=== PATIENT | female | born 1985 | race African-American/Black ===

== ENCOUNTER 2017-08-22 13:44 | Observation (INO) | payer BC, MEDICAID, OTHER ==
[~2017-08-22 13:44] MED LIST: LORazepam INJ* 2 MG/ML 1 ML VIAL IV PUSH ONE
[2017-08-22] MEDS ORDERED: Aspirin Low Dose CHEW TAB* 81 MG PO ONE (15:08)
[2017-08-22] MEDS ORDERED: Nitroglycerin TAB 0.4 MG* 0.4 MG TAB ONE (15:08)
[2017-08-22] MEDS ORDERED: Nitroglycerin TAB 0.4 MG* 0.4 MG TAB SL PRN (15:08)
[2017-08-22] MEDS ORDERED: Aspirin Low Dose CHEW TAB* 81 MG ONE (15:08)
[2017-08-22] MEDS ORDERED: Labetalol IV* 5 MG/ML 20 ML VIAL IV PUSH ONE (15:09)
[2017-08-22 15:45] LABS: Hematocrit 41 % (35-47); Mean Corpuscular HGB Conc 34 g/dl (31-36); Mean Corpuscular Hemoglobin 33 pg (27-31); Mean Corpuscular Volume 99 fL (80-97); Mean Platelet Volume 7 um3 (7.4-10.4); Red Blood Count 4.18 10^6/ul (4.0-5.4); Red Cell Distribution Width 14 % (10.5-15); White Blood Count 7.7 10^3/ul (3.5-10.8)
--- NOTE | 2017-08-22 15:47 | RAD ---
HISTORY: Chest pain COMPARISONS: December 08, 2013 VIEWS: 1: frontal portable view of the chest at 3:36 PM FINDINGS: LINES AND TUBES: None. CARDIOMEDIASTINAL SILHOUETTE: The cardiomediastinal silhouette is normal for portable technique. PLEURA: The costophrenic angles are sharp. No pleural abnormalities are noted. LUNG PARENCHYMA: The lungs are clear. ABDOMEN: The upper abdomen is clear. There is no subphrenic gas. BONES AND SOFT TISSUES: No bone or soft tissue abnormalities are noted. IMPRESSION: NO ACTIVE CARDIOPULMONARY DISEASE.
[2017-08-22] MEDS ORDERED: LORazepam INJ* 2 MG/ML 1 ML VIAL IV PUSH ONE ×2 (15:52→18:15)
[2017-08-22 16:26] LABS: ALT 15 U/L (7-52); AST 17 U/L (13-39); Albumin 5.1 g/dL (3.2-5.2); Alkaline Phosphatase 81 U/L (34-104); Anion Gap 9 mmol/L (2-11); BUN/Creatinine Ratio 10.1 (8-20); Blood Urea Nitrogen 8 mg/dL (6-24); CO2 Carbon Dioxide 24 mmol/L (22-32); Calcium 10.4 mg/dL (8.6-10.3); Chloride 102 mmol/L (101-111); Creatine Kinase 50 U/L (10-223); EGFR African American 107.1 (>60); EGFR Non-African American 83.3 (>60); Globulin 3.8 g/dL (2-4); Glucose 104 mg/dL (70-100); Magnesium 2.1 mg/dL (1.9-2.7); Potassium 3.6 mmol/L (3.5-5.0); Sodium 135 mmol/L (133-145); Total Protein 8.9 g/dL (6.4-8.9)
[2017-08-22 17:28] LABS: Urine Bacteria Absent (Absent); Urine Bilirubin Negative (Negative); Urine Glucose Negative (Negative); Urine Nitrite Negative (Negative)
[2017-08-22] MEDS ORDERED: hydrALAZINE IV* 20 MG/ML VIAL IV SLOW PU ONE (18:16)
[2017-08-22] MEDS ORDERED: amLODIPine TAB* 5 MG PO ONE (18:18)
[2017-08-22] MEDS ORDERED: hydrALAZINE IV* 20 MG/ML VIAL IV SLOW PU PRN (18:25)
[2017-08-22] MEDS ORDERED: Acetaminophen TAB* 325 MG PO PRN (18:26)
[2017-08-22] MEDS ORDERED: Ondansetron INJ* 2 MG/ML VIAL IV PRN (18:26)
--- NOTE | 2017-08-22 18:39 | ED ---
Jamilah Bo Thomas, scribed for Peter Christiansen MD on 08/22/17 at 1514 . Hypertension - HPI Summary HPI Summary: The pt is a 32 y/o F presenting to the ED c/o elevated blood pressure in the 170s/120s. The patient began to develop blurry vision when she was at work and she asked her co-worker to measure her blood pressure, revealing the elevated blood pressure. She has a Hx of HTN sometimes and has previously been treated with medication. However, this medication gave her dizziness and she stopped taking the medication some time ago. She also c/o CP described as tightness that began since she arrived to [facility]. Pt additionally c/o blurry vision, a slight HODGE, dizziness, and near-syncope (none in the ED but prior to arrival). Pt denies N/V. PMHx negative for CAD and HLD. She is a non-smoker, occasionally uses alcohol, and no drug use. PSHx of an ectopic 11 years ago. She is accompanied by a male. - History of Current Complaint Chief Complaint: EDHypertension Stated Complaint: HIGH BP Time Seen by Provider: 08/22/17 14:56 Hx Obtained From: Patient Hx Last Menstrual Period: a while ago - on control Onset/Duration: Started Hours Ago - onset of blurry vision today, Still Present Timing: Constant Reported Blood Pressure Prior To Arrival: 170s/120s Aggravating Factor(s): Nothing Alleviating Factor(s): Nothing Associated Signs & Symptoms: Chest Pain, Vision Changes, Headaches, Dizziness, Other: - Near-syncope (none in the ED but POP SINGER) Related Hx: Diagnosed As: - HTN - Allergies/Home Medications Allergies/Adverse Reactions: Allergies Allergy/AdvReac Type Severity Reaction Status Date / Time Penicillins Allergy Intermediate RASH, Verified 08/22/17 15:06 ITCHY THROAT, DIFFICULTY BREATHING, HIVES all fruit except citrus Allergy Severe Hives/Diff. 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 Denies: Hx Congestive Heart Failure, Hx Deep Vein Thrombosis, Hx Myocardial Infarction, Hx Pacemaker/ICD Respiratory History: Reports: Hx Asthma Denies: Hx Chronic Obstructive Pulmonary Disease (COPD), Hx Lung Cancer, Hx Pneumonia, Hx Pulmonary Embolism GI History: Denies: Hx Gall Bladder Disease, Hx Gastrointestinal Bleed, Hx Jaundice, Hx Ulcer, Hx Urosepsis History: Reports: Hx Kidney Stones - PASSED years ago., Other Problems/ Disorders - kidney stone Denies: Hx Renal Disease Sensory History: Reports: Hx Contacts or Glasses - glasses no contacts Opthamlomology History: Reports: Hx Contacts or Glasses - glasses no contacts Neurological History: Reports: Other Neuro Impairments/Disorders - anxiety Denies: Hx Dementia, Hx Migraine, Hx Seizures, Hx Transient Ischemic Attacks (TIA) Psychiatric History: Reports: Hx Anxiety - NO MED Denies: Hx Depression, Hx Schizophrenia, Hx Bipolar Disorder - Surgical History Surgery Procedure, Year, and Place: ectopic 2003 Hx Anesthesia Reactions: No Infectious Disease History: No Infectious Disease History: Denies: Hx Clostridium Difficile, Hx Hepatitis, Hx Human Immunodeficiency Virus (HIV), Hx of Known/Suspected MRSA, Hx Shingles, Hx Tuberculosis, Hx Known/ Suspected VRE, Hx Known/Suspected VRSA, History Other Infectious Disease, Traveled Outside the [place] in Last 30 Days - Family History Known Family History: Positive: Hypertension, Blood Disorder - sickle cell Negative: Renal Disease - Social History Alcohol Use: Occasionally Hx Substance Use: No Substance Use Type: Reports: None Hx Tobacco Use: No Smoking Status (MU): Never Smoked Tobacco Length of Time of Smoking/Using Tobacco: 5 + cigs Have You Smoked in the Last Year: Yes Review of Systems Negative: Fever Positive: Blurred Vision Positive: Chest Pain, Other - Elevatd BP in the 170s/120s Negative: Vomiting, Nausea Neurological: Other - Dizziness, near-syncope Positive: Headache - minor All Other Systems Reviewed And Are Negative: Yes Physical Exam - Summary Physical Exam Summary: VITAL SIGNS: Reviewed. GENERAL: Patient is a well-developed and nourished female who is lying comfortable in the stretcher. Patient is not in any acute respiratory distress. HEAD AND FACE: No signs of trauma. No ecchymosis, hematomas or skull depressions. No sinus tenderness. EYES: PERRLA, EOMI x 2, No injected conjunctiva, no nystagmus. Fundoscopic exam is negative. EARS: Hearing grossly intact. Ear canals and tympanic membranes are within normal limits. MOUTH: Oropharynx within normal limits. NECK: Supple, trachea is midline, no adenopathy, no JVD, no carotid bruit, no c- spine tenderness, neck with full ROM. CHEST: Symmetric, no tenderness at palpation LUNGS: Clear to auscultation bilaterally. No wheezing or crackles. CVS: Regular rate and rhythm, S1 and S2 present, no murmurs or gallops appreciated. ABDOMEN: Soft, non-tender. No signs of distention. No rebound no guarding, and no masses palpated. Bowel sounds are normal. EXTREMITIES: FROM in all major joints, no edema, no cyanosis or clubbing. NEURO: Alert and oriented x 3. No acute neurological deficits. Speech is normal and follows commands. SKIN: Dry and warm Triage Information Reviewed: Yes Vital Signs On Initial Exam: Initial Vitals Temp Pulse Resp BP Pulse Ox 99 F 94 16 171/107 95 08/22/17 13:46 08/22/17 13:46 08/22/17 13:46 08/22/17 13:46 08/22/17 13:46 Vital Signs Reviewed: Yes Diagnostics - Vital Signs Vital Signs Temp Pulse Resp BP Pulse Ox 08/22/17 13:46 99 F 94 16 171/107 95 - Laboratory Lab Results: Lab Results 08/22/17 08/22/17 08/22/17 Range/Units 15:28 15:28 15:28 WBC 7.7 (3.5-10.8) 10^3/ul RBC 4.18 (4.0-5.4) 10^6/ul Hgb 14.0 (12.0-16.0) g/dl Hct 41 (35-47) % MCV 99 H (80-97) fL MCH 33 H (27-31) pg MCHC 34 (31-36) g/dl RDW 14 (10.5-15) % Plt Count 357 (150-450) 10^3/ul MPV 7 L (7.4-10.4) um3 Neut % (Auto) 60.6 (38-83) % Lymph % (Auto) 17.7 L (25-47) % Gregory % (Auto) 6.8 (1-9) % Eos % (Auto) 14.3 H (0-6) % Baso % (Auto) 0.6 (0-2) % Absolute Neuts (auto) 4.7 (1.5-7.7) 10^3/ul Absolute Lymphs (auto) 1.4 (1.0-4.8) 10^3/ul Absolute Monos (auto) 0.5 (0-0.8) 10^3/ul Absolute Eos (auto) 1.1 H (0-0.6) 10^3/ul Absolute Basos (auto) 0 (0-0.2) 10^3/ul Absolute Nucleated RBC 0 10^3/ul Nucleated RBC % 0 Sodium 135 (133-145) mmol/L Potassium 3.6 (3.5-5.0) mmol/L Chloride 102 (101-111) mmol/L Carbon Dioxide 24 (22-32) mmol/L Anion Gap 9 (2-11) mmol/L BUN 8 (6-24) mg/dL Creatinine 0.79 (0.51-0.95) mg/dL Est GFR ( Amer) 107.1 (>60) Est GFR (Non-Af Amer) 83.3 (>60) BUN/Creatinine Ratio 10.1 (8-20) Glucose 104 H (70-100) mg/dL Calcium 10.4 H (8.6-10.3) mg/dL Magnesium 2.1 (1.9-2.7) mg/dL Total Bilirubin 0.60 (0.2-1.0) mg/dL AST 17 (13-39) U/L ALT 15 (7-52) U/L Alkaline Phosphatase 81 (34-104) U/L Total Creatine Kinase 50 (10-223) U/L CK-MB (CK-2) 0.7 (0.6-6.3) ng/mL Troponin I 0.00 (<0.04) ng/mL B-Natriuretic Peptide 20 ( - 100) pg/mL Total Protein 8.9 (6.4-8.9) g/dL Albumin 5.1 (3.2-5.2) g/dL Globulin 3.8 (2-4) g/dL Albumin/Globulin Ratio 1.3 (1-3) TSH 0.60 (0.34-5.60) mcIU/mL Beta HCG, Quant < 0.60 mIU/mL Urine Color Urine Appearance Urine pH (5-9) Ur Specific [place] (1.010-1.030) Urine Protein (Negative) Urine Ketones (Negative) Urine Blood (Negative) Urine Nitrate (Negative) Urine Bilirubin (Negative) Urine Urobilinogen (Negative) Ur Leukocyte Esterase (Negative) Urine WBC (Auto) (Absent) Urine RBC (Auto) (Absent) Ur Squamous Epith Cells (Absent) Urine Bacteria (Absent) Urine Glucose (Negative) 08/22/17 Range/Units 17:08 WBC (3.5-10.8) 10^3/ul RBC (4.0-5.4) 10^6/ul Hgb (12.0-16.0) g/dl Hct (35-47) % MCV (80-97) fL MCH (27-31) pg MCHC (31-36) g/dl RDW (10.5-15) % Plt Count (150-450) 10^3/ul MPV (7.4-10.4) um3 Neut % (Auto) (38-83) % Lymph % (Auto) (25-47) % Gregory % (Auto) (1-9) % Eos % (Auto) (0-6) % Baso % (Auto) (0-2) % Absolute Neuts (auto) (1.5-7.7) 10^3/ul Absolute Lymphs (auto) (1.0-4.8) 10^3/ul Absolute Monos (auto) (0-0.8) 10^3/ul Absolute Eos (auto) (0-0.6) 10^3/ul Absolute Basos (auto) (0-0.2) 10^3/ul Absolute Nucleated RBC 10^3/ul Nucleated RBC % Sodium (133-145) mmol/L Potassium (3.5-5.0) mmol/L Chloride (101-111) mmol/L Carbon Dioxide (22-32) mmol/L Anion Gap (2-11) mmol/L BUN (6-24) mg/dL Creatinine (0.51-0.95) mg/dL Est GFR ( Amer) (>60) Est GFR (Non-Af Amer) (>60) BUN/Creatinine Ratio (8-20) Glucose (70-100) mg/dL Calcium (8.6-10.3) mg/dL Magnesium (1.9-2.7) mg/dL Total Bilirubin (0.2-1.0) mg/dL AST (13-39) U/L ALT (7-52) U/L Alkaline Phosphatase (34-104) U/L Total Creatine Kinase (10-223) U/L CK-MB (CK-2) (0.6-6.3) ng/mL Troponin I (<0.04) ng/mL B-Natriuretic Peptide ( - 100) pg/mL Total Protein (6.4-8.9) g/dL Albumin (3.2-5.2) g/dL Globulin (2-4) g/dL Albumin/Globulin Ratio (1-3) TSH (0.34-5.60) mcIU/mL Beta HCG, Quant mIU/mL Urine Color Yellow Urine Appearance Clear Urine pH 6.0 (5-9) Ur Specific [place] 1.008 L (1.010-1.030) Urine Protein Negative (Negative) Urine Ketones Negative (Negative) Urine Blood 1+ H (Negative) Urine Nitrate Negative (Negative) Urine Bilirubin Negative (Negative) Urine Urobilinogen Negative (Negative) Ur Leukocyte Esterase Negative (Negative) Urine WBC (Auto) Trace(0-5/hpf) (Absent) Urine RBC (Auto) Trace(0-2/hpf) (Absent) Ur Squamous Epith Cells Present H (Absent) Urine Bacteria Absent (Absent) Urine Glucose Negative (Negative) Result Diagrams: 08/22/17 15:28 08/22/17 15:28 Lab Statement: Any lab studies that have been ordered have been reviewed, and results considered in the medical decision making process. - Radiology CXR Xray Interpretation: No Acute Changes - No active cardiopulmonary disease. ED physician has reviewed this report and agrees. Radiology Interpretation Completed By: Radiologist - EKG 13:58 Cardiac Rate: NL - 90 BPM EKG Interpretation: Sinus rhyhm. No ST elevations. Nml axis. Hypertension Course/Dx - Course Assessment/Plan: The pt is a 32 y/o F presenting to the ED c/o elevated blood pressure in the 170s/120s. The patient began to develop blurry vision when she was at work and she asked her co-worker to measure her blood pressure, revealing the elevated blood pressure. She has a Hx of HTN sometimes and has previously been treated with medication. However, this medication gave her dizziness and she stopped taking the medication some time ago. She also c/o CP described as tightness that began since she arrived to [facility]. Pt additionally c/o blurry vision, a slight HODGE, dizziness, and near-syncope (none in the ED but prior to arrival). Pt denies N/V. PMHx negative for CAD and HLD. She is a non- smoker, occasionally uses alcohol, and no drug use. PSHx of an ectopic 11 years ago. She is accompanied by a male. Test results are without significant abnormality except glucose 104 and calcium 10.4. Troponin is 0.00. UA is negative for UTI. CXR show no acute cardiopulmonary disease. In the ED course the patient was given labetalol for the hypertensive urgency and ASA and NTG for CP. The patient says that the CP has decreased after NTG. Therefore, I discussed the case with Dr. Wilkerson, who accepts the patient for admission to [facility]. The patient is hemodynamically stable and alert and oriented x3. - Diagnoses Differential Diagnosis/HQI PQRI: Hypertension, Hypertensive Crisis, Hypertensive Urgency Provider Diagnoses: Hypertensive urgency, Chest pain rule out ACS - Physician Notifications Discussed Care Of Patient With: Ernesto Becerra Time Discussed With Above Provider: 17:32 Instructed by Provider To: Other - I consulted with Dr. Becerra, hospitalist, who admits the patient to [facility]. Discharge - Discharge Plan Condition: Fair Disposition: ADMITTED TO [facility] documentation as recorded by the Jamilah powell Thomas accurately reflects the service I personally performed and the decisions made by me, Peter Christiansen MD.
[2017-08-22 19:01] LABS: Benzodiazepine Urine Screen None Detected (None Detect)
[2017-08-22] MEDS ORDERED: Enoxaparin(*) 40 MG/0.4 ML SYR SUBCUT SCH (20:00)
--- NOTE | 2017-08-22 22:15 | HP ---
CC: Dr. Castillo* ADMISSION HISTORY AND PHYSICAL: DATE OF ADMISSION: 08/22/2017. PRIMARY CARE PROVIDER: Dr. Castillo. ADMITTING PROVIDER: ALIRIO Deleon SUPERVISING PHYSICIAN: Dr. Ernesto Becerra* (dictated by ALIRIO Deleon). CHIEF COMPLAINT: Headache, chest pain, and anxiety. HISTORY OF PRESENT ILLNESS: This is a 32-year-old female with a known history of hypertension, who presents to the emergency department with complaints of headache, chest pain, and anxiety. She states that she has also had some visual changes including blurred vision and some pain in her eyes that she associates with focusing between objects far and near. She was previously treated for hypertension, but stopped her antihypertensive medication about 4 years ago because she states that it made her feel dizzy. She has not been treated since or had a history of prior hypertensive urgency. She has a family history with her mother and grandmother both being treated for hypertension but states that she has not had a prior workup for secondary causes of hypertension. In the emergency department, the patient was given aspirin, labetalol, and a nitro tab as well as a half a milligram of IV lorazepam. She states that initially she started to feel somewhat better but at the time of evaluation her symptoms have started to return again. The patient denies any recent illness or inciting factor. She states that the anxiety started after she had the headache and chest pain. It sounds like her mother and grandmother had serious medical problems and she is anxious about her current symptoms. The patient denies abdominal pain, nausea, vomiting, or diarrhea. PAST MEDICAL HISTORY: Hypertension. PAST SURGICAL HISTORY: Fallopian ectopic . HOME MEDICATIONS: None. FAMILY HISTORY: Both mother and grandmother were treated for hypertension. Her mother had a history of cardiac arrest and her grandmother had CVA. SOCIAL HISTORY: The patient is an active smoker, at least a 15- to 20-pack- year smoking history. She consumes alcohol on a social basis. She currently lives alone and denies any illicit drug use. REVIEW OF SYSTEMS: As noted above in HPI, all other systems reviewed and considered negative. PHYSICAL EXAMINATION GENERAL: This is a young and otherwise well-appearing but anxious female accompanied by her sister. VITAL SIGNS: Initially, temperature 99 degrees Fahrenheit, pulse 94 beats per minute, respiratory rate 16 per minute, oxygen saturation 95% on room air, blood pressure 171/107 mmHg. HEENT: Head is normocephalic and atraumatic. Mucous membranes are pink and moist. Funduscopic exam was not completed. RESPIRATORY: Lungs are clear to auscultation without wheezes, crackles, or rhonchi. CARDIOVASCULAR: Heart has regular rate and rhythm without murmurs, rubs, or gallops. ABDOMEN: Abdomen is soft. She has some mild tenderness to palpation. EXTREMITIES: No edema noted. PSYCH: The patient is alert and appropriately oriented but seems excessively anxious and has somewhat of a nervous tap. SKIN: No concerning rashes or lesions on limited exam. DIAGNOSTIC STUDIES/LAB DATA: CBC shows a white blood cell count of 7700, hemoglobin of 14.0 g/dL, and a platelet count of 357,000. Comprehensive metabolic panel shows a sodium of 135 mmol/L, potassium of 3.6, serum bicarb 24, creatinine 0.79. Random glucose of 104 mg/dL. Total bilirubin and transaminases within normal limits. Troponin negative at 0.00. BNP normal at 20. Beta hCG is negative. TSH is normal at 0.6. Urinalysis is unremarkable, specifically no proteinuria appreciated. Imaging: EKG shows a normal sinus rhythm. Chest x-ray shows no acute process. ASSESSMENT AND PLAN: This is a 32-year-old female with a known history of hypertension, has been untreated for several years, who presents with complaints of headache and chest pain with blurred vision with noted hypertension. She is being admitted to observation status for hypertensive urgency. 1. Hypertensive urgency - no evidence of end-organ damage. Troponin negative. No EKG changes. The patient responded slightly to the labetalol and nitro in the emergency department. We will start oral amlodipine and give IV hydralazine along with some additional IV lorazepam for her persistent anxiety. Workup for secondary causes of hypertension should be considered in this young and otherwise healthy and fit-appearing female. She does have a family history of hypertension, but otherwise no explanation for such poorly controlled hypertension in a young woman. She is no longer treated with oral contraceptive pills but has in the past. We will order serum catecholamines and recommend a duplex arterial ultrasound of the renal arteries to evaluate for stenosis on an outpatient basis, which can be coordinated through her primary care provider. 2. Anxiety - the patient states that this is not a chronic complaint for her and the anxiety started after her other symptoms, rather than the other way around. 3. Code status. The patient is full code. 4. DVT prophylaxis. The patient is at low risk and will be placed on SCDs. 5. Healthcare proxy is her father. DISPOSITION: The patient is being admitted to observation status with anticipated length of stay to be less than 2 midnights. ALIRIO DELEON [id number]/[facility] #: [id number] MTDTaiwo
[2017-08-22] MEDS ORDERED: Iohexol 350* (CONTRAST) 500 ML MDV IV ONE (22:34)
[2017-08-23] MEDS ORDERED: ALPRAZolam TAB* 0.5 MG PO ONE (07:01)
--- NOTE | 2017-08-23 07:57 | RAD ---
INDICATION: Chest pain in a 32-year-old. Evaluate for aortic dissection. COMPARISON: CTA chest December 08, 2013 TECHNIQUE: Axial source images were obtained from the thoracic inlet to the symphysis pubis following administration of intravenous contrast only and using CT endograft technique. 100 mL of Omnipaque 350 was utilized. Coronal and sagittal reconstructed images were acquired. CHEST FINDINGS: Neck/thyroid: The visualized neck to include the thyroid appear unchanged. There is a left thyroid nodule which is previously undergone fine-needle aspiration. Chest wall: There are no acute abnormalities of the bony thorax or chest wall. There is no supraclavicular, infraclavicular, or axillary lymphadenopathy. Lungs : There are no pulmonary parenchymal masses or infiltrates. The pulmonary interstitium appears normal. There are no endobronchial lesions. Cardiomediastinal structures: The heart is normal in size. There is no pericardial effusion. There is no evidence of thoracic aortic aneurysm or dissection. The pulmonary vessels appear normal. There is no CT evidence of acute pulmonary embolic disease. There is no mediastinal or hilar adenopathy. The esophagus appears normal. Pleura : There are no pleural-based masses or effusions. ABDOMINAL/PELVIC FINDINGS: Liver: The liver is normal in size. There are no masses. There is no ductal dilatation. Gallbladder: There are no calcified gallstones. There is no evidence of wall thickening or pericholecystic fluid. Spleen: The spleen is normal in size. There are no masses. Pancreas: There is no evidence of pancreatic mass or ductal dilatation. Adrenal glands: There is no evidence of adrenal mass. Kidneys: The kidneys are normal in size and position. There are prompt nephrograms and there is prompt excretion bilaterally. There are no renal parenchymal masses. There is no evidence of nephrolithiasis. Adenopathy: There is no evidence of adenopathy by size criteria. Fluid collections: There are no free or localized fluid collections. Vessels: The abdominal aorta is normal in caliber and without evidence of aortic aneurysm or dissection. The visceral branches arise satisfactorily. The iliac vessels appear normal. GI tract: Evaluation of the GI tract is limited without oral contrast. There are no specific CT abnormality in the upper or lower GI tracts. The appendix is normal Pelvic organs: The uterus and right adnexa are unremarkable. There is a 2.5 cm involuting left ovarian cyst Bladder: There are no bladder masses. Abdominal and pelvic soft tissues: The extraperitoneal abdominal and pelvic soft tissues appear normal.. Osseous structures: There are no acute osseous findings. IMPRESSION: NORMAL CT ANGIOGRAPHIC APPEARANCE OF THE THORACIC AND ABDOMINAL AORTA. NO CT EVIDENCE OF ACUTE PULMONARY EMBOLIC DISEASE. STABLE LEFT THYROID NODULE.
[2017-08-23 10:21] LABS: Calcium 9.1 mg/dL (8.6-10.3); EGFR African American 121.2 (>60); EGFR Non-African American 94.2 (>60); Potassium 3.7 mmol/L (3.5-5.0)
[2017-08-23 13:19] VITALS: BP 118/77
--- NOTE | 2017-08-23 17:35 | DS ---
DISCHARGE SUMMARY: DATE OF ADMISSION: 08/22/17 DATE OF DISCHARGE: 08/23/17 ADMITTING PROVIDER: ALIRIO Dasilva. ATTENDING PHYSICIAN: Surya Lynne MD. PRIMARY CARE PROVIDER: Dr. Castillo. CHIEF COMPLAINT: Headache, chest pressure, anxiety. PRIMARY DIAGNOSES: 1. Hypertensive urgency. 2. Anxiety attack. HISTORY OF PRESENT ILLNESS AND HOSPITAL COURSE: aYni Campbell is a 32-year- old female with past medical history of hypertension, off medications for the last several years as she felt dizzy on them, who presented with blurred vision , pain in the eyes associated with difficulty focusing between objects far and near, please see H & P for full details. The patient briefly also felt a sensation of chest pressure/squeezing as if an elevator door was closing on her. She was noted to be hypertensive in the emergency room with systolic blood pressure 175/125. She was given IV hydralazine and oral amlodipine with improvement of pressures by hospital day #2. Her troponins were negative. EKG showed no ischemic changes. She was monitored on telemetry with no evidence of arrhythmias. She attested to a throbbing sensation in her "spine," during these episodes and she had a CT chest, abdomen, and pelvis with IV contrast which did not show any evidence of pulmonary embolism, did demonstrate a stable left thyroid nodule and she did have a normal appearance of the thoracic and abdominal aorta. She did have a history of anxiety and was trialed on Prozac with Dr. Castillo in March but stopped it as she did not like the way it made her feel, "made her have a placid smile." Of note, her mother in December and this seems to be a tremendous source of stress in her life. Given her young age, secondary causes of hypertension were considered and a serum catecholamine test drawn but still pending upon discharge. She was recommended to have a renal ultrasound as an outpatient to rule out renal artery stenosis. Her lab work was stable with no signs of end organ damage. She was given Xanax in the morning with some improvement in her anxiety however her ambulation was somewhat slow and unsteady with improvement throughout day. She was discharged instead on Ativan 0.5mg t.i.d. prn anxiety until she can follow up with Dr. Castillo as an outpatient. She will also be started on amlodipine 5 mg daily. DISCHARGE DIET: Regular, unchanged. DISCHARGE DISPOSITION: Home. DISCHARGE MEDICATIONS: Include: 1. Amlodipine 5 mg daily . 2. Ativan 0.5mg po t.i.d. p.r.n. for anxiety. FOLLOWUP: She will follow up with Dr. Castillo as an outpatient for further workup of hypertension and anxiety attacks. TIME SPENT: Time spent on discharge is 35 minutes. [id number]/[facility] #: [id number] MTDTaiwo
== END 2017-08-23 16:40 | disposition home or self-care (01) ==
LOC: ED 13:44 → MEDTELE 17:49
PROVIDERS: ADMIT Internal Medicine; ATTEND Internal Medicine
DX: I16.0 Hypertensive urgency (principal); F41.9 Anxiety disorder, unspecified; R07.9 Chest pain, unspecified; R42 Dizziness and giddiness; H53.8 Other visual disturbances; Z88.0 Allergy status to penicillin; F17.210 Nicotine dependence, cigarettes, uncomplicated; D57.1 Sickle-cell disease without crisis
CPT/HCPCS: 36415; 71010; 71275; 74174; 80048; 80053; 80307; 81003; 81015; 82384; 82550; 82553; 83735; 83880; 84443; 84484; 84702; 85025; 93005; 96374; 96375; 96376; 99284; 99406; A9270-GY; G0378; J0360; J2060; J2405; Q9967

== ENCOUNTER 2018-02-11 17:32 | Emergency (ER) | payer OTHER ==
[2018-02-11 18:54] VITALS: BP 159/103
--- NOTE | 2018-02-11 19:34 | UC ---
Throat Pain/Nasal Hansel HPI - HPI Summary HPI Summary: Cough, nasal congestion, ST, wheezing, and L ear pain starting 3 days ago. Denies fever or known sick contacts. Picked up her albuterol inhaler yesterday, has needed it during illness before. - History of Current Complaint Chief Complaint: UCRespiratory Stated Complaint: COUGH,CONGESTION,EAR PAIN Time Seen by Provider: 02/11/18 19:15 Hx Obtained From: Patient Hx Last Menstrual Period: CONTINUOUS CONTROL ?: No Onset/Duration: Gradual Onset, Lasting Days Severity: Moderate Pain Intensity: 10 Cough: Productive Associated Signs & Symptoms: Positive: Wheezing, Sinus Discomfort, Nasal Discharge - Allergies/Home Medications Allergies/Adverse Reactions: Allergies Allergy/AdvReac Type Severity Reaction Status Date / Time Penicillins Allergy RASH, Verified 02/11/18 18:54 ITCHY THROAT all fruit except citrus Allergy Severe Hives/Diff. Uncoded 02/11/18 18:54 Breathing/I tching ENVIRONMENTAL Allergy ASTHMATIC Uncoded 02/11/18 18:54 SYMPTOMS Seafood Allergy Difficulty Uncoded 02/11/18 18:54 Breathing/Wheezing Home Medications: Home Medications guaiFENesin ER TAB [Mucinex*] PRN 02/11/18 [History] PMH/Surg Hx/FS Hx/Imm Hx Cardiovascular History: Hypertension Respiratory History: Asthma Other History Of: Negative For: HIV, Hepatitis B, Hepatitis C - Surgical History Surgical History: Yes Surgery Procedure, Year, and Place: ectopic 2003 - Family History Known Family History: Positive: Hypertension, Blood Disorder - sickle cell Negative: Renal Disease - Social History Occupation: Employed Full-time Alcohol Use: Occasionally Substance Use Type: None Smoking Status (MU): Current Every Day Smoker Type: Cigarettes Length of Time of Smoking/Using Tobacco: 5-6 CIG/DAY Have You Smoked in the Last Year: Yes - Immunization History Most Recent Influenza Vaccination: 2013/2014 Most Recent Tetanus Shot: unknown Most Recent Pneumonia Vaccination: never Review of Systems Constitutional: Negative Skin: Negative Eyes: Negative ENT: Sore Throat, Ear Ache Respiratory: Shortness Of Breath, Cough Cardiovascular: Negative Gastrointestinal: Negative Genitourinary: Negative Motor: Negative Neurovascular: Negative Musculoskeletal: Negative Neurological: Negative Psychological: Negative Is Patient Immunocompromised?: No All Other Systems Reviewed And Are Negative: Yes Physical Exam Triage Information Reviewed: Yes Appearance: Well-Nourished, Ill-Appearing Vital Signs: Initial Vital Signs Temp 97.1 F 02/11/18 18:49 Pulse 100 02/11/18 18:49 Resp 16 02/11/18 18:49 BP 159/103 02/11/18 18:49 Pulse Ox 100 02/11/18 18:49 Vital Signs Reviewed: Yes Eye Exam: Normal Eyes: Positive: Conjunctiva Clear ENT: Positive: Pharynx normal, Nasal congestion - marked, TMs normal - normal, clear bilat. Negative: TM bulging, TM dull, TM red Dental Exam: Normal Neck exam: Normal Neck: Positive: Supple, Nontender, No Lymphadenopathy Respiratory: Positive: Wheezing - sparse Cardiovascular: Positive: No Murmur, Tachycardia Musculoskeletal Exam: Normal Neurological Exam: Normal Neurological: Positive: Alert Psychological Exam: Normal Skin Exam: Normal Throat Pain/Nasal Course/Dx - Differential Dx/Diagnosis Provider Diagnoses: URI, likely viral Discharge - Discharge Plan Condition: Stable Disposition: HOME Patient Education Materials: Upper Respiratory Infection (ED) Forms: *Gen. Provider Communication, *Work Release Referrals: Tyra Castillo MD [Primary Care Provider] - Additional Instructions: Use your albuterol inhaler every 4 hours as needed for wheezing or tightness. Increase your fluid intake. A cool mist humidifier may make your lungs more comfortable. An expectorant (cough medicine that loosens phlegm) can help. If you smoke, STOP!!! Recovery from bronchitis can be somewhat slow, but you should not have any significant worsening or new fevers. As long as you can breathe easily and you continue to have steady improvement, it is not important how many days it takes you to get better. Call or return if you develop increasing fever, shortness of breath, chest pain , bloody sputum, or otherwise worsen. If you have not improved at all after several days, contact your primary care physician or return here.
== END 2018-02-11 19:37 | disposition home or self-care (01) ==
LOC: UCEAST 17:32
DX: J06.9 Acute upper respiratory infection, unspecified (principal); I10 Essential (primary) hypertension; J45.909 Unspecified asthma, uncomplicated; Z88.0 Allergy status to penicillin; F17.210 Nicotine dependence, cigarettes, uncomplicated
CPT/HCPCS: 99211; G0463

== ENCOUNTER 2018-04-09 18:04 | Emergency (ER) | payer OTHER ==
[2018-04-09 18:29] VITALS: BP 122/85
--- NOTE | 2018-04-09 19:02 | UC ---
Throat Pain/Nasal Hansel HPI - HPI Summary HPI Summary: 3 DAYS OF SORE THROAT AND PAIN WITH SWALLOWING. ALSO HAS A NONPRODUCTIVE COUGH AND FEELS ACHY. NO NASAL CONGESTION, FEVER, EAR PAIN. - History of Current Complaint Chief Complaint: UCRespiratory Stated Complaint: THROAT PAIN Time Seen by Provider: 04/09/18 18:26 Hx Obtained From: Patient Hx Last Menstrual Period: 02/25/2018 Onset/Duration: Gradual Onset, Lasting Days, Still Present Severity: Moderate Pain Intensity: 7 Pain Scale Used: 0-10 Numeric Cough: Nonproductive Associated Signs & Symptoms: Positive: Nasal Discharge. Negative: Fever, Vomiting - Allergies/Home Medications Allergies/Adverse Reactions: Allergies Allergy/AdvReac Type Severity Reaction Status Date / Time Penicillins Allergy RASH, Verified 02/11/18 18:54 ITCHY THROAT all fruit except citrus Allergy Severe Hives/Diff. Uncoded 02/11/18 18:54 Breathing/I tching ENVIRONMENTAL Allergy ASTHMATIC Uncoded 02/11/18 18:54 SYMPTOMS Seafood Allergy Difficulty Uncoded 02/11/18 18:54 Breathing/Wheezing Home Medications: Home Medications NK [No Home Medications Reported] 04/09/18 [History Confirmed 04/09/18] PMH/Surg Hx/FS Hx/Imm Hx Endocrine History: Thyroid Disease - Nodule left thyroid Cardiovascular History: Hypertension Respiratory History: Asthma Other History Of: Negative For: HIV, Hepatitis B, Hepatitis C - Surgical History Surgical History: Yes Surgery Procedure, Year, and Place: ectopic 2003 - Family History Known Family History: Positive: Hypertension, Blood Disorder - sickle cell Negative: Renal Disease - Social History Alcohol Use: Occasionally Substance Use Type: None Smoking Status (MU): Current Every Day Smoker Type: Cigarettes Length of Time of Smoking/Using Tobacco: 5-6 CIG/DAY Have You Smoked in the Last Year: Yes - Immunization History Most Recent Influenza Vaccination: 2013/2014 Most Recent Tetanus Shot: unknown Most Recent Pneumonia Vaccination: never Review of Systems Constitutional: Negative ENT: Sore Throat Respiratory: Cough Cardiovascular: Negative Gastrointestinal: Negative Musculoskeletal: Myalgia All Other Systems Reviewed And Are Negative: Yes Physical Exam Triage Information Reviewed: Yes Appearance: Well-Appearing, No Pain Distress, Well-Nourished Vital Signs: Initial Vital Signs Temp 98.6 F 04/09/18 18:23 Pulse 109 04/09/18 18:23 Resp 18 04/09/18 18:23 BP 122/85 04/09/18 18:23 Pulse Ox 100 04/09/18 18:23 Vital Signs Reviewed: Yes Eyes: Positive: Conjunctiva Clear ENT: Positive: Hearing grossly normal, Pharynx normal, TMs normal Neck: Positive: Supple, Nontender, Other: - Thyromegaly Respiratory Exam: Normal Cardiovascular Exam: Normal Abdomen Description: Positive: Soft Musculoskeletal: Positive: No Edema Neurological: Positive: Alert Psychological: Positive: Age Appropriate Behavior Skin: Negative: rashes Diagnostics - Laboratory Diagnostic Studies Completed/Ordered: STREP NEG Throat Pain/Nasal Course/Dx - Differential Dx/Diagnosis Provider Diagnoses: ACUTE URI Discharge - Sign-Out/Discharge Documenting (check all that apply): Discharge/Admit/Transfer - Discharge Plan Condition: Stable Disposition: HOME Patient Education Materials: Upper Respiratory Infection (ED) Forms: *Gen. Provider Communication Referrals: Tyra Castillo MD [Primary Care Provider] - 1 Week Additional Instructions: STREP NEGATIVE. YOUR SYMPTOMS ARE LIKELY VIRALLY MEDIATED AND SHOULD RESOLVE ON THEIR OWN WITH TIME. NO INDICATION FOR ANTIBIOTICS AT PRESENT. REST, HYDRATE, OTC MEDS NEEDED. SEEK FOLLOW-UP IF YOU ARE NOT IMPROVING OVER THE NEXT 1-2 WEEKS. DISCUSS WITH YOUR PCP YOUR THYROID NODULE AND RECOMMENDATIONS FOR REPEAT IMAGING TO DOCUMENT STABILITY. - Billing Disposition and Condition Condition: STABLE Disposition: HOME
== END 2018-04-09 19:08 | disposition home or self-care (01) ==
LOC: UCEAST 18:04
DX: J06.9 Acute upper respiratory infection, unspecified (principal); E04.1 Nontoxic single thyroid nodule; I10 Essential (primary) hypertension; J45.909 Unspecified asthma, uncomplicated; Z88.0 Allergy status to penicillin; F17.210 Nicotine dependence, cigarettes, uncomplicated
CPT/HCPCS: 87651; 99211; G0463

== ENCOUNTER 2018-06-12 09:09 | Emergency (ER) | payer OTHER ==
--- OUTSIDE RECORDS SUMMARY | 2018-06-12 09:44 | XMS REPORT ---
:1985 External Reference #:[id number] Author Organization [facility] Address [address] [facility] [place] [address] Phone [phone] Care Team Providers Name Role Phone Tyra Castillo MD Primary Care Physician Unavailable Payers Type Date Identification Numbers Payment Provider Subscriber Commercial Effective: Policy Number: [id number] [employer] Yani Campbell 2013 Medicaid PayID: [id number] [address] [place] [id number] Problems Date Description Provider Status Onset: 09/02/2013 Tobacco user Jorje Mota M.D. Active Onset: 09/02/2013 Bunion Jorje Mota M.D. Active Onset: 11/15/2015 Cobalamin deficiency Tyra Castillo M.D. Active Note: low normal B12 Onset: 09/02/2013 Hypothyroidism Jorje Mota M.D. Inactive Inactive: 06/22/2015 Onset: 09/02/2013 Neck pain Jorje Mota M.D. Inactive Inactive: 06/22/2015 Onset: 09/02/2013 Tuberculosis screening Jorje Mota M.D. 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 ) Cigarette Use Currently smokes 1-5 Cigarettes Daily ETOH Use Drinks Alcoholic Beverages Occasionally Recreational Drug Use Never Used Drugs Smoking Light tobacco smoker (10 or fewer cigarettes/day) Exercise Type/Frequency Does not exercise Allergies, Adverse Reactions, Alerts Date Description Reaction Status Severity Comments 09/02/2013 Fruit active 09/02/2013 Penicillin swelling, hives active Medications Medication Date Status Form Strength Qnty SIG Indications Ordering Provider Claritin 05/15 Active Tablets 10mg 14tab as needed J06.9 s Maximo Castillo Nicotine Step 3 12/14 Active Patches 7mg/24HR 30uni 1 patch per 24HR ts day Maximo Castillo Amlodipine 08/29 Active Tablets 10mg 90tab Take 1 I10 Peter E. Besylate s Tablet By Megan, Mouth Every M.D. Day Proair HFA Active Aerosol 108(90Bas 8.5un take 1 to 2 Tyra /0000 e) its puffs 4-6 Castillo, mcg/Act times a day M.D. as needed for cough Levonorgestrel/Eth Active Tablets 0.15-0.03 stopped Unknown inyl Estradiol /0000 mg Sertraline HCL 10/04 Hx Tablets 50mg 90tab 1/2 tab by F41.9 s mouth every Anna, - day X 3 wks M.D. 04/10 then 1 tab daily Hydroxyzine 10/04 Hx Capsules 25mg 60cap Take 1-2 F41.9 Tyra Pamoate s Capsules By Anna, - Mouth Every M.D. 04/10 Night Needed For Anxiety While In Home Fluoxetine HCL 04/16 Hx Capsules 10mg 60cap 1 by mouth F43.23 s every day Anna - M.D. 06/26 Vitamin B1 11/16 Hx Tablets 100mg 90tab 1 by mouth s every day Anna - M.D. 04/16 Chantix Starting 11/16 Hx Tablets 0.5mg X 53tab Use as Tyra Month 11 & 1 mg s Directed Anna - X 42 M.D. 07/04 Doxycycline 09/28 Hx Tablets 100mg 20tab 1 tablet J01.90 Tyra Hyclate s twice a day Anna, - x 10 days M.D. 11/03 Prednisone 09/28 Hx Tablets 10mg QS take 4 tab J98.01 Tyra /2015 daily x 2 Castillo, - days then 3 M.D. 11/03 tab daily x 3 days and then 2 tab daily x 3 days then 1 tab X 3 days Prednisone 09/18 Hx Tablets 20mg Take 2 Tablets By - Mouth For 5 Hydroxyzine HCL 07/26 Hx Tablets 10mg 30tab 1 tab by 300.00 s mouth every Anna, - night as M.DLeonie 09/28 every 8 hrs for anxiety attacks Permethrin 02/04 Hx Cream 5% 120gm as directed Peter Henning /2014 Art Guzman M.D. 06/22 Methylprednisolone 02/02 Hx Tablets 4mg 1pack as directed 691.8 Flakita (Adrian) Art Conteh M.D. 06/22 Cyclobenzaprine 02/02 Hx Tablets 10mg 5tabs one by 723.1 Tyra HCL mouth 1x Anna - per day as M.Eduardo 06/22 spasm Amlodipine 12/24 Hx Tablets 10mg 90tab 1 po qd 401.9 Tyra Besylate s Art Castillo M.D. 02/02 Amlodipine 12/10 Hx Tablets 5mg 30tab 1 po qd 401.9 Tyra Besylate s Art Castillo M.D. 12/24 Sudafed Congestion 10/14 Hx Tablets 30mg 60tab 2 tab po 461.8 Flakita /2013 s aneta 4 Wero, - hours prn Maximo 12/10 congestion Humidifier 1.25 10/14 Hx Misc 1.25Gal 1unit use steve 461.8 Flakita Rai /2012 s Art Conteh M.D. 07/08 Amoxicillin/Clavul 10/03 Hx Tablets 875-125mg 20tab 1 tab bid x 682.8 Niesha anate Potassium /2012 s 10 days Mi, - N.P. 10/14 Junel 1.510/01 Hx Tablets 1.5-30mg- 1tabs as directed Tyra /2013 mcg on the pack Art Castillo M.D. 12/10 Sulfamethoxazole/T 09/29 Hx Tablets 800-160mg 20tab 1 po bid Unknown rimethoprim DS s - 10/03 Levonorgestrel/Eth Hx Tablets 0.15-0.03 30tab once daily Jorje inyl Estradiol /0000 mg micheline Cordova M.D. 10/01 Biotin 00 Hx Tablets 1 po qd Unknown /0000 - 10/14 Seasonale Hx Tablets 0.15-0.03 90tab 1 by mouth Tyra /0000 mg s every day Art Castillo M.D. 04/16 Azithromycin Hx Tablets 250mg Take 2 Unknown /0000 Tablets By - Mouth 09/28, Take 1 Tablet Daily For 4 Days Q-Tussin DM Hx Syrup 100-10mg/ Take 1-2 Unknown /0000 5ML Teaspoon - Every 4 To 11/02 6 Hours Needed For Cough Prednisone Hx Tablets 50mg 1 tab daily Unknown /0000 - 04/16 Ibuprofen Hx Tablets 800mg by mouth Unknown /0000 three times - a day as 08/29 Amlodipine Hx Tablets 5mg 1 by mouth Unknown Besylate /0000 every day - 08/29 Alprazolam Hx Tablets 0.25mg Maged, /0000 MD Surya - 08/29 Lorazepam Hx Tablets 0.5mg Take 1 Unknown /0000 Tablet By - Mouth Every 08/29 8 Hours Needed For Anxiety Alprazolam 0000 Hx Tablets 0.25mg as needed Unknown /0000 at hs - 10/04 Medications Administered in Office Medication Date Status Form Strength Qnty SIG Indications Ordering Provider PPD Administered Injection Orly 7 Gloria N.PLeonie PPD Administered Injection Nurse Visit 6 A PPD Administered Injection Tyra 5 Maximo Castillo PPD Administered Injection Nurse Visit 5 A Immunizations CPT Code Status Date Vaccine Lot # [id number] Given 09/15/2014 Afluria Vaccine [id number] Given 09/02/2013 Flu Vaccine Split Virus Preservative Free For [id number] Indiv [id number] Older [id number] Refused 08/29/2017 Influenza Virus Vaccine, Quadrivalent, Split, Preservative Free Vital Signs Date Vital Result Comment 05/15/2018 Height 64 inches 5'4" Weight 137.00 lb Heart Rate 98 /min BP Systolic Sitting 128 mmHg BP Diastolic Sitting 91 mmHg Body Temperature 98.8 F O2 % BldC Oximetry 98 % BMI (Body Mass Index) 23.5 kg/m2 04/10/2018 Height 64 inches 5'4" Weight 141.00 lb Heart Rate 105 /min BP Systolic Sitting 122 mmHg BP Diastolic Sitting 78 mmHg O2 % BldC Oximetry 99 % BMI (Body Mass Index) 24.2 kg/m2 10/04/2017 Weight 136.50 lb Heart Rate 88 /min BP Systolic Sitting 122 mmHg BP Diastolic Sitting 82 mmHg Body Temperature 98.3 F O2 % BldC Oximetry 98 % 08/29/2017 Weight 143.38 lb Heart Rate 120 /min BP Systolic Sitting 138 mmHg BP Diastolic Sitting 94 mmHg Body Temperature 98.0 F O2 % BldC Oximetry 98 % 06/27/2017 Weight 142.00 lb Heart Rate 106 /min BP Systolic Sitting 140 mmHg BP Diastolic Sitting 80 mmHg Body Temperature 99.2 F O2 % BldC Oximetry 99 % 04/16/2017 Weight 142.00 lb Heart Rate 98 /min BP Systolic Sitting 122 mmHg BP Diastolic Sitting 74 mmHg Respiratory Rate 16 /min Body Temperature 98.0 F O2 % BldC Oximetry 98 % 07/04/2016 Weight 143.00 lb Heart Rate 91 /min BP Systolic Sitting 170 mmHg BP Diastolic Sitting 110 mmHg Body Temperature 98.4 F O2 % BldC Oximetry 98 % 11/03/2015 Weight 125.00 lb Heart Rate 98 /min BP Systolic Sitting 124 mmHg BP Diastolic Sitting 80 mmHg Body Temperature 97.9 F O2 % BldC Oximetry 98 % 09/28/2015 Weight 124.00 lb Heart Rate 90 /min BP Systolic Sitting 110 mmHg BP Diastolic Sitting 62 mmHg Respiratory Rate 15 /min Body Temperature 98.7 F O2 % BldC Oximetry 98 % 07/26/2015 Weight 124.00 lb Heart Rate 98 /min BP Systolic Sitting 162 mmHg BP Diastolic Sitting 90 mmHg Body Temperature 98.1 F O2 % BldC Oximetry 97 % 07/08/2015 Heart Rate 101 /min BP Systolic Sitting 128 mmHg BP Diastolic Sitting 78 mmHg 06/22/2015 Height 64 inches 5'4" Weight 123.00 lb Heart Rate 103 /min BP Systolic 154 mmHg BP Diastolic 102 mmHg Body Temperature 99.0 F BMI (Body Mass Index) 21.1 kg/m2 02/08/2015 Height 64 inches 5'4" Weight 120.00 lb Heart Rate 72 /min BP Systolic Sitting 118 mmHg BP Diastolic Sitting 70 mmHg Body Temperature 98.7 F BMI (Body Mass Index) 20.6 kg/m2 02/02/2015 Height 64 inches 5'4" Weight 118.00 lb Heart Rate 82 /min BP Systolic Sitting 118 mmHg BP Diastolic Sitting 70 mmHg Body Temperature 98.7 F BMI (Body Mass Index) 20.3 kg/m2 12/24/2013 Weight 123.00 lb Heart Rate 87 /min BP Systolic Sitting 159 mmHg BP Diastolic Sitting 104 mmHg 12/10/2013 Weight 123.00 lb Heart Rate 89 /min BP Systolic 162 mmHg pulse 75. Rt arm BP Diastolic 106 mmHg pulse 75. Rt arm BP Systolic Sitting 155 mmHg BP Diastolic Sitting 108 mmHg 10/14/2013 Weight 123.50 lb Heart Rate 97 /min BP Systolic Sitting 151 mmHg BP Diastolic Sitting 105 mmHg Body Temperature 98.4 F 10/03/2013 Weight 122.00 lb Heart Rate 86 /min BP Systolic Sitting 146 mmHg BP Diastolic Sitting 94 mmHg 10/01/2013 Weight 123.00 lb Heart Rate 97 /min BP Systolic Sitting 140 mmHg BP Diastolic Sitting 90 mmHg 09/02/2013 Height 65 inches 5'5" Weight 125.25 lb Heart Rate 88 /min BP Systolic Sitting 130 mmHg BP Diastolic Sitting 80 mmHg BMI (Body Mass Index) 20.8 kg/m2 Results Test Date Test Result H/L Range Note Rubeola Measles Igg AB 04/10/2018 Rubeola (Measles) IgG Positive 1 Antibody Rubeola IgG Antibody Index 1.6 2 Laboratory test finding 04/10/2018 Rubella Screen Immune Immune Mumps Igg 04/10/2018 Mumps Virus IgG Antibody Positive 3 Mumps IgG Antibody Index 3.0 4 Varicella Zoster Igg AB 04/10/2018 Varicella-Zoster IgG Antibody Positive 5 Varicella IgG Antibody Index 2.7 6 Laboratory test finding 04/10/2018 Hepatitis B Surface Ag Nonreactive Nonreactive Hepatitis B Tha AB 04/10/2018 Hepatitis B Surface AB Immune Immune Titer Hep B Surf AB Level > 1000.00 mIU/mL >12 Laboratory test finding 04/10/2018 TSH (Thyroid Stim Horm) 0.88 mcIU/mL 0.34-5.60 T3 Free 3.90 pg/mL 2.5-3.9 Free T4 (Free Thyroxine) 0.78 ng/dL 0.61-1.12 CBC Auto Diff 04/10/2018 White Blood Count 9.3 10^3/uL 3.5-10.8 Red Blood Count 3.72 10^6/uL Low 4.0-5.4 Hemoglobin 12.7 g/dL 12.0-16.0 Hematocrit 37 % 35-47 Mean Corpuscular Volume 98 fL High 80-97 Mean Corpuscular Hemoglobin 34 pg High 27-31 Mean Corpuscular HGB Conc 35 g/dL 31-36 Red Cell Distribution Width 13 % 10.5-15 Platelet Count 346 10^3/uL 150-450 Mean Platelet Volume 7.6 um3 7.4-10.4 Abs Neutrophils 6.1 10^3/uL 1.5-7.7 Abs Lymphocytes 1.1 10^3/uL 1.0-4.8 Abs Monocytes 0.5 10^3/uL 0-0.8 Abs Eosinophils 1.6 10^3/uL High 0-0.6 Abs Basophils 0 10^3/uL 0-0.2 Abs Nucleated RBC 0 10^3/uL Granulocyte % 65.7 % 38-83 Lymphocyte % 11.7 % Low 25-47 Monocyte % 5.4 % 0-7 Eosinophil % 16.8 % High 0-6 Basophil % 0.4 % 0-2 Nucleated Red Blood Cells % 0.1 Laboratory test finding 04/10/2018 Erythrocyte Sed Rate 33 mm/Hr High 0- 14 Comp Metabolic Panel 04/10/2018 Sodium 138 mmol/L Low 139-145 Potassium 4.0 mmol/L 3.5-5.0 Chloride 107 mmol/L 101-111 Co2 Carbon Dioxide 23 mmol/L 22-32 Anion Gap 8 mmol/L 2-11 Glucose 103 mg/dL High 70-100 Blood Urea Nitrogen 7 mg/dL 6-24 Creatinine 0.88 mg/dL 0.51-0.95 BUN/Creatinine Ratio 8.0 8-20 Calcium 9.5 mg/dL 8.6-10.3 Total Protein 7.3 g/dL 6.4-8.9 Albumin 4.3 g/dL 3.2-5.2 Globulin 3.0 g/dL 2-4 Albumin/Globulin Ratio 1.4 1-3 Total Bilirubin 0.40 mg/dL 0.2-1.0 Alkaline Phosphatase 65 U/L 34-104 Alt 9 U/L 7-52 Ast 12 U/L Low 13-39 Egfr Non- 73.6 >60 Egfr 94.6 >60 7 Laboratory test finding 04/09/2018 Rapid Strep Molecular Negative Negative 8 Laboratory test finding 08/22/2017 Magnesium 2.1 mg/dL 1.9-2.7 Creatine Kinase(CK) 50 U/L 10-223 TSH (Thyroid Stim Horm) 0.60 mcIU/mL 0.34-5.60 Comp Metabolic Panel 08/22/2017 Sodium 135 mmol/L 133-145 Potassium 3.6 mmol/L 3.5-5.0 Chloride 102 mmol/L 101-111 Co2 Carbon Dioxide 24 mmol/L 22-32 Anion Gap 9 mmol/L 2-11 Glucose 104 mg/dL High 70-100 Blood Urea Nitrogen 8 mg/dL 6-24 Creatinine 0.79 mg/dL 0.51-0.95 BUN/Creatinine Ratio 10.1 8-20 Calcium 10.4 mg/dL High 8.6-10.3 Total Protein 8.9 g/dL 6.4-8.9 Albumin 5.1 g/dL 3.2-5.2 Globulin 3.8 g/dL 2-4 Albumin/Globulin Ratio 1.3 1-3 Total Bilirubin 0.60 mg/dL 0.2-1.0 Alkaline Phosphatase 81 U/L 34-104 Alt 15 U/L 7-52 Ast 17 U/L 13-39 Egfr Non- 83.3 >60 Egfr 107.1 >60 9 Laboratory test finding 08/22/2017 HCG < 0.60 mIU/mL 10 CKMB 08/22/2017 CKMB ng/mL 0.7 ng/mL 0.6-6.3 Laboratory test finding 08/22/2017 B-Type Natriuretic 20 pg/mL 11 Peptide BNP Troponin-I (TnI) 0.00 ng/mL <0.04 Urinalysis Profile 08/22/2017 Urine Color Yellow Urine Appearance Clear Urine Specific Jewett 1.008 Low 1.010-1.030 Urine pH 6.0 5-9 Urine Urobilinogen Negative Negative Urine Ketones Negative Negative Urine Protein Negative Negative Urine Leukocytes Negative Negative Urine Blood 1+ Negative Urine Nitrite Negative Negative Urine Bilirubin Negative Negative Urine Glucose Negative Negative Urine White Blood Cell Trace(0-5/hpf) Absent Urine Red Blood Cell Trace(0-2/hpf) Absent Urine Bacteria Absent Absent Urine Squamous Epithelial Cell Present Absent CBC Auto Diff 08/22/2017 White Blood Count 7.7 10^3/uL 3.5-10.8 Red Blood Count 4.18 10^6/uL 4.0-5.4 Hemoglobin 14.0 g/dL 12.0-16.0 Hematocrit 41 % 35-47 Mean Corpuscular Volume 99 fL High 80-97 Mean Corpuscular Hemoglobin 33 pg High 27-31 Mean Corpuscular HGB Conc 34 g/dL 31-36 Red Cell Distribution Width 14 % 10.5-15 Platelet Count 357 10^3/uL 150-450 Mean Platelet Volume 7 um3 Low 7.4-10.4 Abs Neutrophils 4.7 10^3/uL 1.5-7.7 Abs Lymphocytes 1.4 10^3/uL 1.0-4.8 Abs Monocytes 0.5 10^3/uL 0-0.8 Abs Eosinophils 1.1 10^3/uL High 0-0.6 Abs Basophils 0 10^3/uL 0-0.2 Abs Nucleated RBC 0 10^3/uL Granulocyte % 60.6 % 38-83 Lymphocyte % 17.7 % Low 25-47 Monocyte % 6.8 % 1-9 Eosinophil % 14.3 % High 0-6 Basophil % 0.6 % 0-2 Nucleated Red Blood Cells % 0 Ua Routine 06/27/2017 Ua Specific Jewett 1.015 Ua PH 5 Ua Color dark straw Ua Appera clear Ua WBC - Ua Protein - Ua Glucose normal Ua Ketones small - Ua Bilirubin neg Ua Urobilinogen normal Ua Nitrite neg Ua Occult Blood trace Laboratory test finding 06/04/2017 TSH (Thyroid Stim 1.27 mcIU/mL 0.34- 5.60 12 Horm) CBC Auto Diff 06/04/2017 White Blood Count 8.0 10^3/uL 3.5-10.8 Red Blood Count 3.84 10^6/uL Low 4.0-5.4 Hemoglobin 13.1 g/dL 12.0-16.0 Hematocrit 39 % 35-47 Mean Corpuscular Volume 101 fL High 80-97 Mean Corpuscular Hemoglobin 34 pg High 27-31 Mean Corpuscular HGB Conc 34 g/dL 31-36 Red Cell Distribution Width 15 % 10.5-15 Platelet Count 272 10^3/uL 150-450 Mean Platelet Volume 8 um3 7.4-10.4 Abs Neutrophils 5.1 10^3/uL 1.5-7.7 Abs Lymphocytes 0.9 10^3/uL Low 1.0-4.8 Abs Monocytes 0.7 10^3/uL 0-0.8 Abs Eosinophils 1.2 10^3/uL High 0-0.6 Abs Basophils 0.1 10^3/uL 0-0.2 Abs Nucleated RBC 0.01 10^3/uL Granulocyte % 63.9 % 38-83 Lymphocyte % 11.1 % Low 25-47 Monocyte % 8.7 % 1-9 Eosinophil % 15.5 % High 0-6 Basophil % 0.8 % 0-2 Nucleated Red Blood Cells % 0.2 Comp Metabolic Panel 06/04/2017 Sodium 137 mmol/L 133-145 Potassium 3.8 mmol/L 3.5-5.0 Chloride 106 mmol/L 101-111 Co2 Carbon Dioxide 23 mmol/L 22-32 Anion Gap 8 mmol/L 2-11 Glucose 98 mg/dL 70-100 Blood Urea Nitrogen 9 mg/dL 6-24 Creatinine 0.70 mg/dL 0.51-0.95 BUN/Creatinine Ratio 12.9 8-20 Calcium 9.6 mg/dL 8.6-10.3 Total Protein 7.5 g/dL 6.4-8.9 Albumin 4.3 g/dL 3.2-5.2 Globulin 3.2 g/dL 2-4 Albumin/Globulin Ratio 1.3 1-3 Total Bilirubin 0.80 mg/dL 0.2-1.0 Alkaline Phosphatase 90 U/L 34-104 Alt 13 U/L 7-52 Ast 15 U/L 13-39 Egfr Non- 96.4 >60 Egfr 123.9 >60 13 CBC Auto Diff 07/04/2016 White Blood Count 10.3 10^3/uL 3.5-10.8 Red Blood Count 3.63 10^6/uL Low 4.0-5.4 Hemoglobin 12.3 g/dL 12.0-16.0 Hematocrit 35 % 35-47 Mean Corpuscular Volume 97 fL 80-97 Mean Corpuscular Hemoglobin 34 pg High 27-31 Mean Corpuscular HGB Conc 35 g/dL 31-36 Red Cell Distribution Width 13 % 10.5-15 Platelet Count 350 10^3/uL 150-450 Mean Platelet Volume 7 um3 Low 7.4-10.4 Abs Neutrophils 7.8 10^3/uL High 1.5-7.7 Abs Lymphocytes 1.6 10^3/uL 1.0-4.8 Abs Monocytes 0.8 10^3/uL 0-0.8 Abs Eosinophils 0.1 10^3/uL 0-0.6 Abs Basophils 0 10^3/uL 0-0.2 Abs Nucleated RBC 0 10^3/uL Granulocyte % 75.7 % 38-83 Lymphocyte % 15.2 % Low 25-47 Monocyte % 8.0 % 1-9 Eosinophil % 0.9 % 0-6 Basophil % 0.2 % 0-2 Nucleated Red Blood Cells % 0 Comp Metabolic Panel 07/04/2016 Sodium 135 mmol/L 133-145 Potassium 3.3 mmol/L Low 3.5-5.0 Chloride 105 mmol/L 101-111 Co2 Carbon Dioxide 23 mmol/L 22-32 Anion Gap 7 mmol/L 2-11 Glucose 87 mg/dL 70-100 Blood Urea Nitrogen 8 mg/dL 6-24 Creatinine 0.76 mg/dL 0.51-0.95 BUN/Creatinine Ratio 10.5 8-20 Calcium 9.2 mg/dL 8.6-10.3 Total Protein 7.0 g/dL 6.4-8.9 Albumin 4.0 g/dL 3.2-5.2 Globulin 3.0 g/dL 2-4 Albumin/Globulin Ratio 1.3 1-3 Total Bilirubin 0.40 mg/dL 0.2-1.0 Alkaline Phosphatase 45 U/L 34-104 Alt 13 U/L 7-52 Ast 12 U/L Low 13-39 Egfr Non- 87.6 >60 Egfr 112.7 >60 14 Laboratory test 07/04/2016 CRP High 3.88 mg/L 15 finding Sensitivity Laboratory test 07/04/2016 HIV 1&2 AB Self Nonreactive Nonreactive 16 finding Referred Urine Culture And 04/28/2016 Urine Culture SEE RESULT BELOW 17, 18 Sensitivities Laboratory test 11/11/2015 Vitamin B12 193 pg/mL 180-914 19, 20 finding TSH (Thyroid Stim Horm) 0.72 ?IU/mL 0.34-5.60 19, 21 Lipid Profile (Trig/Chol/HDL) 11/11/2015 Triglycerides 151 mg/dL 19, 22 Cholesterol 175 mg/dL 19, 23 HDL Cholesterol 35.3 mg/dL 19, 24 LDL Cholesterol 110 mg/dL 19, 25 Comp Metabolic Panel 11/11/2015 Sodium 134 mmol/L 133-145 19 Potassium 4.0 mmol/L 3.5-5.0 19 Chloride 105 mmol/L 101-111 19 Co2 Carbon Dioxide 22 mmol/L 22-32 19 Anion Gap 7 mmol/L 2-11 19 Glucose 86 mg/dL 70-100 19 Blood Urea Nitrogen 7 mg/dL 6-24 19 Creatinine 0.67 mg/dL 0.51-0.95 19 BUN/Creatinine Ratio 10.4 8-20 19 Calcium 9.2 mg/dL 8.6-10.3 19 Total Protein 7.0 g/dL 6.4-8.9 19 Albumin 4.2 g/dL 3.2-5.2 19 Globulin 2.8 g/dL 2-4 19 Albumin/Globulin Ratio 1.5 1-3 19 Total Bilirubin 0.50 mg/dL 0.2-1.0 19 Alkaline Phosphatase 43 U/L 34-104 19 Alt 10 U/L 7-52 19 Ast 12 U/L Low 13-39 19 Egfr Non- 102.0 >60 19 Egfr 131.2 >60 19, 26 Laboratory test finding 07/15/2015 Cytology Non-Health Education Specialist SEE RESULT BELOW 27 Mumps Igg 07/06/2015 Mumps Virus IgG Antibody Positive 28 Mumps IgG Antibody Index 2.2 29 Rubella Igg Titer 07/06/2015 Rubella IgG Antibody Positive 30 Rubella IgG Antibody Index 2.3 31 Rubeola Measles Igg AB 07/06/2015 Rubeola (Measles) IgG Antibody Positive 32 Rubeola IgG Antibody Index 1.9 33 Laboratory test finding 06/22/2015 Test Urine negative CBC Auto Diff 03/31/2015 White Blood Count 4.4 10^3/uL Low 4.8-10.8 Red Blood Count 3.73 10^6/uL Low 4.0-5.4 Hemoglobin 12.8 g/dL 12.0-16.0 Hematocrit 37 % 35-47 Mean Corpuscular Volume 100 fL High 80-97 Mean Corpuscular Hemoglobin 34 pg High 27-31 Mean Corpuscular HGB Conc 34 g/dL 31-36 Red Cell Distribution Width 14 % 10.5-15 Platelet Count 326 10^3/uL 150-450 Mean Platelet Volume 8 um3 7.4-10.4 Abs Neutrophils 2.4 10^3/uL 1.5-7.7 Abs Lymphocytes 0.9 10^3/uL Low 1.0-4.8 Abs Monocytes 0.5 10^3/uL 0-0.8 Abs Eosinophils 0.5 10^3/uL 0-0.6 Abs Basophils 0.1 10^3/uL 0-0.2 Abs Nucleated RBC 0.01 10^3/uL Granulocyte % 55.1 % 38-83 Lymphocyte % 20.0 % Low 25-47 Monocyte % 11.5 % High 1-9 Eosinophil % 12.2 % High 0-6 Basophil % 1.2 % 0-2 Nucleated Red Blood Cells % 0.2 Laboratory test finding 03/31/2015 Serum Negative Negative 34 Comp Metabolic Panel 03/31/2015 Sodium 132 mmol/L Low 133-145 Potassium 3.8 mmol/L 3.5-5.0 Chloride 105 mmol/L 101-111 Co2 Carbon Dioxide 22 mmol/L 22-32 Anion Gap 5 mmol/L 2-11 Glucose 116 mg/dL High 70-100 Blood Urea Nitrogen 6 mg/dL 6-24 Creatinine 0.79 mg/dL 0.51-0.95 BUN/Creatinine Ratio 7.6 Low 8-20 Calcium 9.1 mg/dL 8.6-10.3 Total Protein 7.5 g/dL 6.4-8.9 Albumin 4.1 g/dL 3.2-5.2 Globulin 3.4 g/dL 2-4 Albumin/Globulin Ratio 1.2 1-3 Total Bilirubin 0.30 mg/dL 0.2-1.0 Alkaline Phosphatase 50 U/L 34-104 Alt 9 U/L 7-52 Ast 13 U/L 13-39 Egfr Non- 84.9 >60 Egfr 109.2 >60 35 Laboratory test finding 03/31/2015 C Reactive Protein 48.73 mg/L High < 5.00 36 Lactic Acid 1.2 mmol/L 0.5-2.2 Wound Culture/Sensi 03/29/2015 Wound/Misc Culture-Gram (SEE NOTE) 37 Stain CBC Auto Diff 02/03/2015 White Blood Count 4.9 10^3/uL 4.8-10.8 Red Blood Count 3.55 10^6/uL Low 4.0-5.4 Hemoglobin 12.0 g/dL 12.0-16.0 Hematocrit 35 % 35-47 Mean Corpuscular Volume 97 fL 80-97 Mean Corpuscular Hemoglobin 34 pg High 27-31 Mean Corpuscular HGB Conc 35 g/dL 31-36 Red Cell Distribution Width 14 % 10.5-15 Platelet Count 288 10^3/uL 150-450 Mean Platelet Volume 8 um3 7.4-10.4 Abs Neutrophils 2.8 10^3/uL 1.5-7.7 Abs Lymphocytes 1.1 10^3/uL 1.0-4.8 Abs Monocytes 0.3 10^3/uL 0-0.8 Abs Eosinophils 0.6 10^3/uL 0-0.6 Abs Basophils 0.1 10^3/uL 0-0.2 Abs Nucleated RBC 0 10^3/uL Granulocyte % 57.8 % 38-83 Lymphocyte % 22.3 % Low 25-47 Monocyte % 7.0 % 1-9 Eosinophil % 11.7 % High 0-6 Basophil % 1.2 % 0-2 Nucleated Red Blood Cells % 0 Laboratory test 02/03/2015 Erythrocyte Sed Rate 20 mm/Hr High 0-14 finding Syphilis Screen 02/03/2015 Syphilis IgG Nonreactive Nonreactive 38 RPR TNP Nonreactive RPR Titer TNP Pediatric/Maternal NO Rapid Strep A 12/26/2014 Rapid Strep A (SEE NOTE) 39 Laboratory test finding 12/26/2014 Lactic Acid 0.7 mmol/L 0.5-2.2 Blood Culture (SEE NOTE) 40 CBC Auto Diff 12/26/2014 White Blood Count 18.7 10^3/uL High 4.8-10.8 Red Blood Count 3.97 10^6/uL Low 4.0-5.4 Hemoglobin 13.3 g/dL 12.0-16.0 Hematocrit 38 % 35-47 Mean Corpuscular Volume 97 fL 80-97 Mean Corpuscular Hemoglobin 34 pg High 27-31 Mean Corpuscular HGB Conc 35 g/dL 31-36 Red Cell Distribution Width 13 % 10.5-15 Platelet Count 267 10^3/uL 150-450 Mean Platelet Volume 7 um3 Low 7.4-10.4 Abs Neutrophils 16.9 10^3/uL High 1.5-7.7 Abs Lymphocytes 0.6 10^3/uL Low 1.0-4.8 Abs Monocytes 1.1 10^3/uL High 0-0.8 Abs Eosinophils 0.1 10^3/uL 0-0.6 Abs Basophils 0 10^3/uL 0-0.2 Abs Nucleated RBC 0 10^3/uL Granulocyte % 90.2 % High 38-83 Lymphocyte % 3.5 % Low 25-47 Monocyte % 5.6 % 1-9 Eosinophil % 0.5 % 0-6 Basophil % 0.2 % 0-2 Nucleated Red Blood Cells % 0 Comp Metabolic Panel 12/26/2014 Sodium 132 mmol/L Low 133-145 Potassium 3.3 mmol/L Low 3.5-5.0 Chloride 100 mmol/L Low 101-111 Co2 Carbon Dioxide 22 mmol/L 22-32 Anion Gap 10 mmol/L 2-11 Glucose 85 mg/dL 70-100 Blood Urea Nitrogen 5 mg/dL Low 6-24 Creatinine 0.69 mg/dL 0.51-0.95 BUN/Creatinine Ratio 7.2 Low 8-20 Calcium 9.8 mg/dL 8.6-10.3 Total Protein 7.8 g/dL 6.4-8.9 Albumin 4.5 g/dL 3.2-5.2 Globulin 3.3 g/dL 2-4 Albumin/Globulin Ratio 1.4 1-3 Total Bilirubin 0.70 mg/dL 0.2-1.0 Alkaline Phosphatase 61 U/L 34-104 Alt 7 U/L 7-52 Ast 11 U/L Low 13-39 Egfr Non- 99.2 >60 Egfr 127.6 >60 41 Laboratory test finding 12/26/2014 C Reactive Protein 195.66 mg/L High < 5.00 42 Lactic Acid 0.6 mmol/L 0.5-2.2 CBC Auto Diff 12/08/2013 White Blood Count 5.3 10^3/uL 4.8-10.8 Red Blood Count 3.96 10^6/uL Low 4.0-5.4 Hemoglobin 13.2 g/dL 12.0-16.0 Hematocrit 38 % 35-47 Mean Corpuscular Volume 97 fL 80-97 Mean Corpuscular Hemoglobin 33 pg High 27-31 Mean Corpuscular HGB Conc 35 g/dL 31-36 Red Cell Distribution Width 14 % 10.5-15 Platelet Count 338 10^3/uL 150-450 Mean Platelet Volume 7 um3 Low 7.4-10.4 Abs Neutrophils 3.5 10^3/uL 1.5-7.7 Abs Lymphocytes 1.1 10^3/uL 1.0-4.8 Abs Monocytes 0.4 10^3/uL 0-0.8 Abs Eosinophils 0.3 10^3/uL 0-0.6 Abs Basophils 0 10^3/uL 0-0.2 Abs Nucleated RBC 0.01 10^3/uL Granulocyte % 65.5 % 38-83 Lymphocyte % 21.2 % Low 25-47 Monocyte % 6.8 % 1-9 Eosinophil % 5.7 % 0-6 Basophil % 0.8 % 0-2 Nucleated Red Blood Cells % 0.1 Comp Metabolic Panel 12/08/2013 Sodium 136 mmol/L 133-145 Potassium 3.3 mmol/L Low 3.5-5.0 Chloride 106 mmol/L 101-111 Co2 Carbon Dioxide 23.0 mmol/L 22-32 Anion Gap 7.0 mmol/L 2-11 Glucose 130 mg/dL High 70-100 Blood Urea Nitrogen 9 mg/dL 6-24 Creatinine 0.60 mg/dL 0.50-1.40 BUN/Creatinine Ratio 15.0 8-20 Calcium 9.3 mg/dL 8.1-9.9 Total Protein 7.7 g/dL 6.2-8.1 Albumin 4.2 g/dL 3.6-5.4 Globulin 3.5 g/dL 2-4 Albumin/Globulin Ratio 1.2 1-3 Total Bilirubin 0.7 mg/dL 0.4-1.5 Alkaline Phosphatase 50 U/L 30-110 Alt 19 U/L 14-54 Ast 19 U/L 12-42 Egfr Non- 117.4 >60 Egfr 151.0 >60 43 Laboratory test finding 12/08/2013 Lipase 26 U/L 22-51 Troponin I 0 ng/mL 0-0.06 44 Laboratory test finding 12/08/2013 Inr 0.97 0.85-1.06 45 Activated Partial Thrombo Time 30.1 seconds 24.0-36.1 46 Serum Negative Negative 47 Wound Culture/Sensi 09/29/2013 Wound/Misc Culture-Gram Stain (SEE NOTE) 48 Quantiferon Gold TB 09/02/2013 M tuberculosis by Quantiferon Negative Tuberculosis Antigen Value 0.00 IU/mL 49 Comp Metabolic Panel 09/02/2013 Sodium 134 mmol/L 133-145 Potassium 4.1 mmol/L 3.5-5.0 Chloride 105 mmol/L 101-111 Co2 Carbon Dioxide 21.0 mmol/L Low 22-32 Anion Gap 8.0 mmol/L 2-11 Glucose 87 mg/dL 70-100 Blood Urea Nitrogen 7 mg/dL 6-24 Creatinine 0.70 mg/dL 0.50-1.40 BUN/Creatinine Ratio 10.0 8-20 Calcium 9.3 mg/dL 8.1-9.9 Total Protein 6.9 g/dL 6.2-8.1 Albumin 3.9 g/dL 3.6-5.4 Globulin 3.0 g/dL 2-4 Albumin/Globulin Ratio 1.3 1-3 Total Bilirubin 0.5 mg/dL 0.4-1.5 Alkaline Phosphatase 47 U/L 30-110 Alt 12 U/L Low 14-54 Ast 16 U/L 12-42 Egfr Non- 98.3 >60 Egfr 126.4 >60 50 Laboratory test finding 09/02/2013 TSH (Thyroid Stimulating 0.57 miu/mL 0.34-5.60 Horm) 1 Results suggest response to immunization or prior exposure to the virus. REFERENCE VALUE Vaccinated: Positive (>=1.1 AI) Unvaccinated: Negative (<=0.8 AI) 2 Test Performed by: [facility] [employer] [facility] [place] [address] 3 Results suggest response to immunization or prior exposure to the virus. REFERENCE VALUE Vaccinated: Positive (>=1.1 AI) Unvaccinated: Negative (<=0.8 AI) 4 Test Performed by: [facility] [employer] [address] [place] [address] 5 Results suggest response to immunization or prior exposure to the virus. REFERENCE VALUE Vaccinated: Positive (>=1.1 AI) Unvaccinated: Negative (<=0.8 AI) 6 Test Performed by: [facility] [place] [facility] [address] [place] [address] 7 Because ethnic data is not always readily available, this report includes an eGFR for both -Americans and non- Americans. The National Kidney Disease Education Program (NKDEP) does not endorse the use of the MDRD equation for patients that are not between the ages of 18 and 70, are , have extremes of body size, muscle mass, or nutritional status, or are non- or non-. According to the National Kidney Foundation, irrespective of diagnosis, the stage of the disease is based on the level of kidney function: Stage Description GFR(mL/min/1.73 m(2)) 1 Kidney damage with normal or decreased GFR 90 2 Kidney damage with mild decrease in GFR 60-89 3 Moderate decrease in GFR 30-59 4 Severe decrease in GFR 15-29 5 Kidney failure <15 (or dialysis) 8 [employer]: [id number] 9 Because ethnic data is not always readily available, this report includes an eGFR for both -Americans and non- Americans. The National Kidney Disease Education Program (NKDEP) does not endorse the use of the MDRD equation for patients that are not between the ages of 18 and 70, are , have extremes of body size, muscle mass, or nutritional status, or are non- or non-. According to the National Kidney Foundation, irrespective of diagnosis, the stage of the disease is based on the level of kidney function: Stage Description GFR(mL/min/1.73 m(2)) 1 Kidney damage with normal or decreased GFR 90 2 Kidney damage with mild decrease in GFR 60-89 3 Moderate decrease in GFR 30-59 4 Severe decrease in GFR 15-29 5 Kidney failure <15 (or dialysis) 10 <5.0 Negative 5.0 - 25.0 Indeterminate (Repeat testing recommended after 72 hours) >25.0 Positive Perimenopausal women can display HCG levels of up to 20 mIU/mL 11 >100 to <200 pg/mL: likely compensated congestive heart failure (CHF) 200 to 400 pg/mL: likely moderate CHF >400 pg/mL: likely moderate to severe CHF 12 FASTING 10 HOUR 13 Because ethnic data is not always readily available, this report includes an eGFR for both -Americans and non- Americans. The National Kidney Disease Education Program (NKDEP) does not endorse the use of the MDRD equation for patients that are not between the ages of 18 and 70, are , have extremes of body size, muscle mass, or nutritional status, or are non- or non-. According to the National Kidney Foundation, irrespective of diagnosis, the stage of the disease is based on the level of kidney function: Stage Description GFR(mL/min/1.73 m(2)) 1 Kidney damage with normal or decreased GFR 90 2 Kidney damage with mild decrease in GFR 60-89 3 Moderate decrease in GFR 30-59 4 Severe decrease in GFR 15-29 5 Kidney failure <15 (or dialysis) 14 Because ethnic data is not always readily available, this report includes an eGFR for both -Americans and non- Americans. The National Kidney Disease Education Program (NKDEP) does not endorse the use of the MDRD equation for patients that are not between the ages of 18 and 70, are , have extremes of body size, muscle mass, or nutritional status, or are non- or non-. According to the National Kidney Foundation, irrespective of diagnosis, the stage of the disease is based on the level of kidney function: Stage Description GFR(mL/min/1.73 m(2)) 1 Kidney damage with normal or decreased GFR 90 2 Kidney damage with mild decrease in GFR 60-89 3 Moderate decrease in GFR 30-59 4 Severe decrease in GFR 15-29 5 Kidney failure <15 (or dialysis) 15 Low risk: <1.00 Average risk: 1.00-3.00 High risk: >3.00 16 It is recognized that currently available assays for the detection of antibodies to HIV-1 and/or HIV-2 may not detect all infected individuals. HIV antibodies may be undetectable in some stages of the infection and in some clinical conditions. The performance of this assay has not been established for populations of infants or children. Assayed by Chemiluminescence Microparticle Immunoassay on the Siemens Advia Centaur CP. Values obtained with different methods or kits cannot be used interchangeably.The diagnostic specificity of the ADVIA Centaur 1/O/2 Enhanced assay in the low risk population was 99.90% (6052/6058) with a 95% confidence interval of 99.78 to 99.96%. 17 [id number] 18 SEE RESULT BELOW Name: YANI CAMPBELL : [address]: Arun Raphael MD Acct: [id number] Unit: [id number] AGE: 30 Location: [facility] Re04/28/16 SEX: F Status: DEP ER SPEC: [id number] [place]: 04/28/16-1819 [facility] DR: Arun Raphael MD REQ: [id number] RECD: 04/29/16-1258 STATUS: BERLIN HAYDEN DR: Tyra Castillo MD _ SOURCE: URINE SPDES: ORDERED: Urine Culture COMMENTS: [id number] Procedure Result Reported Site Urine Culture Final 04/30/16- 1200 ML No growth of clinically significant organisms * ML - MAIN LAB ([facility]) . END OF REPORT * ML=Testing performed at Main Lab DEPARTMENT OF PATHOLOGY, [address] [place] [address] Colton Woodard M.D. Director [facility] # [id number] 19 FASTING 20 Normal Range 180 to 914 Indeterminate Range 145 to 180 Deficient Range <145 21 FASTING 22 Desirable <150 Borderline high 150-199 High 200-499 Very High >500 23 Desirable <200 Borderline high 200-239 High >239 24 Low <40 Desirable: 40-60 High: >60 25 Desirable: <100 mg/dL Near Optimal: 100-129 mg/dL Borderline High: 130-159 mg/dL High: 160-189 mg/dL Very High: >189 mg/dL 26 Because ethnic data is not always readily available, this report includes an eGFR for both -Americans and non- Americans. The National Kidney Disease Education Program (NKDEP) does not endorse the use of the MDRD equation for patients that are not between the ages of 18 and 70, are , have extremes of body size, muscle mass, or nutritional status, or are non- or non-. According to the National Kidney Foundation, irrespective of diagnosis, the stage of the disease is based on the level of kidney function: Stage Description GFR(mL/min/1.73 m(2)) 1 Kidney damage with normal or decreased GFR 90 2 Kidney damage with mild decrease in GFR 60-89 3 Moderate decrease in GFR 30-59 4 Severe decrease in GFR 15-29 5 Kidney failure <15 (or dialysis) 27 SEE RESULT BELOW Name: YANI CAMPBELL : [address]: Kevin Rojas MD Acct: [id number] Unit: [id number] AGE: 30 Location: THYROID Re07/15/15 SEX: F Status: REG REF SPEC: [id number] [place]: 07/15/15-1230 [facility] DR: Maxwell Roberts MD REQ: [id number] RECD: 07/15/15-1250 STATUS: ISAIAS HAYDEN DR: Kevin Castillo MD _ ORDERED: FN ASP DEEP, FNA Imme St Add, FNA IMMEDIATE S FINAL DIAGNOSIS Thyroid, left, Ultrasound guided, fine needle aspiration: Benign thyroid nodule- colloid/hyperplastic type. The specimen demonstrates moderate watery colloid, a moderate amount of benign appearing follicular epithelium arranged in uniform sheets, medium sized follicles and only occasional small groups. No features of papillary carcinoma are seen. In this clinical setting the risk of malignancy is less than 3%. Clinical management of this thyroid nodule should be based on clinical and radiographic features as well as the above. THYROID LEFT - US GUIDED FINE NEEDLE ASPIRATION CLINICAL HISTORY Left nodule-3.4x 2.4x 2.4cm IMMEDIATE INTERPRETATION Pass 1-inadequate, pass 2-adequate CONTINUED ON NEXT PAGE * ML=Testing performed at Main Lab DEPARTMENT OF PATHOLOGY, [address] [place] [address] Colton Woodard M.D. Director [facility] # [id number] RUN DATE: 07/15/15 [facility] LAB LIVE PAGE 2 Patient: YANI CAMPBELL [id number] (Continued) GROSS DESCRIPTION (Continued) GROSS DESCRIPTION 8- alcohol fixed slide(s) 2 - passes Signed (signature on file) Colton Woodard MD 1314 END OF REPORT * ML=Testing performed at Main Lab DEPARTMENT OF PATHOLOGY, [facility] [place], [place] [address] Colton Woodard M.D. Director [facility] # [id number] 28 Results suggest response to immunization or prior exposure to the virus. REFERENCE VALUE Vaccinated: Positive (>=1.1 AI) Unvaccinated: Negative (<=0.8 AI) 29 Test Performed by: [facility] [place] [address] [employer] Rep[employer]r: Derrick Hong II, M.D., Ph.D. 30 Results suggest response to immunization or prior exposure to the virus. REFERENCE VALUE Vaccinated: Positive (>=1.0 AI) Unvaccinated: Negative (<=0.7 AI) 31 Test Performed by: [facility] [place] [address] [employer] Rep[employer]r: Derrick Hong II, M.D., Ph.D. 32 Results suggest response to immunization or prior exposure to the virus. REFERENCE VALUE Vaccinated: Positive (>=1.1 AI) Unvaccinated: Negative (<=0.8 AI) 33 Test Performed by: [facility] - [address] [address] [employer] Rep[employer]r: Derrick Hong II, M.D., Ph.D. 34 This test detects intact HCG only and is indicated for the early detection of . 35 Because ethnic data is not always readily available, this report includes an eGFR for both -Americans and non- Americans. The National Kidney Disease Education Program (NKDEP) does not endorse the use of the MDRD equation for patients that are not between the ages of 18 and 70, are , have extremes of body size, muscle mass, or nutritional status, or are non- or non-. According to the National Kidney Foundation, irrespective of diagnosis, the stage of the disease is based on the level of kidney function: Stage Description GFR(mL/min/1.73 m(2)) 1 Kidney damage with normal or decreased GFR 90 2 Kidney damage with mild decrease in GFR 60-89 3 Moderate decrease in GFR 30-59 4 Severe decrease in GFR 15-29 5 Kidney failure <15 (or dialysis) 36 Acute inflammation: >10.00 37 RUN DATE: 04/02/15 [facility] LAB LIVE PAGE 1 RUN TIME: 4414 [address] [place], [place] [address] Specimen Inquiry Name: YANI CAMPBELL : [address]: Karmen Saldaña MD Acct: [id number] Unit: [id number] AGE: 29 Location: [facility] Re03/29/15 SEX: F Status: DEP ER SPEC: [id number] [place]: 03/29/15-1330 [facility] DR: Karmen Saldaña MD REQ: [id number] RECD: 03/29/156864 STATUS: COMP [facility] DR: Tyra Castillo MD _ SOURCE: PERINEUM SPDESC: ORDERED: Culture Stain Procedure Result Verified Site Wound/Misc Gram Stain Final 03/30/15- 0952 ML 4+ Neutrophils 2+ Epithelial Cells 3+ Gram Positive Cocci 4+ Gram Negative Bacilli 2+ Gram Negative Coccobacilli Wound/Misc Culture Final 04/02/15- 1044 ML Organism 1 STAPHYLOCOCCUS EPIDERMIDIS Quantity 1+ Organism 2 ANAEROBIC GRAM NEGATIVE BACILL Quantity 2+ WITH OTHER POSSIBLE MIXED ANAEROBES. Organisms nonviable for further testing. 1. STAPHYLOCOCCUS EPIDERMIDIS M.I.C. RX --------- ------ Penicillin >=0.5 R Clindamycin R Erythromycin >=8 R Gentamicin <=0.5 S Linezolid 1 S Nitrofurantoin <=16 S CONTINUED ON NEXT PAGE * ML=Testing performed at Main Lab DEPARTMENT OF PATHOLOGY, [facility] [place], [place] [address] Colton Woodard M.D. Director [facility] # [id number] RUN DATE: 04/02/15 [facility] LAB LIVE PAGE 2 RUN TIME: 1044 [facility] [employer] [place], [place] [address] Specimen Inquiry Patient: YANI CAMPBELL [id number] (Continued) Specimen: [id number] Collected: 03/29/15 Received: 03/29/15 (Continued) Procedure Result Verified Site Wound/Misc Culture Final (continued) 04/02/15- 1043 1. STAPHYLOCOCCUS EPIDERMIDIS (continued) M.I.C. RX --------- ------ Oxacillin 0.5 R * Quinupristin/Dalfopristin <=0.25 S Rifampin <=0.5 S Tetracycline 2 S Doxycycline - Deduced S * Minocycline - Deduced S Tigecycline <=0.12 S Vancomycin 2 S Imipenem-Deduced R * Ampicillin/Sulbactam-Deduced R Cefazolin-Deduced R * These antibiotics are not available in the [facility] Formulary Contact the Microbiology Department for any additional antibiotic reporting. * ML - [facility] ([facility]) . END OF REPORT * ML=Testing performed at Main Lab DEPARTMENT OF PATHOLOGY, [facility] [place] [address] Colton Woodard M.D. Director [facility] # [id number] 38 Warning: A positive result is not useful for establishing a diagnosis of syphilis. In most situations, such a result may reflect a prior treated infection; a negative result can exclude a diagnosis of syphilis except for incubating or early primary disease. 39 RUN DATE: 12/26/14 [facility] LAB LIVE PAGE 1 RUN TIME: 2034 [facility] [employer] [place], [place] [address] Specimen Inquiry Name: YANI CAMPBELL : [address]: Abimael Guardado DO Acct: [id number] Unit: [id number] AGE: 29 Location: ED Re12/26/14 SEX: F Status: REG ER SPEC: [id number] [place]: 12/26/14-[address]: Janny AMEZQUITA REQ: [id number] RECD: 12/26/14 STATUS: BERLIN HAYDEN DR: Abimael Miranda MD _ SOURCE: THROAT [facility]: ORDERED: Rapid Strep A Procedure Result Verified Site Rapid Strep A Final 12/26/14- 2034 ML Organism 1 POSITIVE STREP GROUP A Antigen testing by enzyme immunoassay. The dimension quarry supervisor and regulatory agencies both recommend that a throat culture for beta strep be performed if a Rapid Group A Strep assay yields a negative result. Therefore a culture will be automatically performed on all negative samples. END OF REPORT * ML=Testing performed at Main Lab DEPARTMENT OF PATHOLOGY, [address] [place] [address] Colton Woodard M.D. Director [facility] # [id number] 40 RUN DATE: 12/31/14 [facility] LAB LIVE PAGE 1 RUN TIME: [address] [place] [address] Specimen Inquiry Name: YANI CAMPBELL : [address]: Abimael Guardado DO Acct: [id number] Unit: [id number] AGE: 29 Location: ED Re12/26/14 SEX: F Status: DEP ER SPEC: [id number] AZ: 12/26/[address]: Janny AMEZQUITA REQ: [id number] RECD: 12/26/14 STATUS: BERLIN HAYDEN DR: Abimael Miranda MD _ SOURCE: BLOOD,VENO SPDESC: ORDERED: Blood Cult Procedure Result Verified Site Aerobic Culture Bottle Final 12/31/14- 1950 ML No Growth Day 5 Anaerobic Culture Bottle Final 12/31/14- 1950 ML No Growth Day 5 END OF REPORT * ML=Testing performed at Main Lab DEPARTMENT OF PATHOLOGY, [address] [place] [address] Colton Woodard M.D. Director [facility] # [id number] 41 Because ethnic data is not always readily available, this report includes an eGFR for both -Americans and non- Americans. The National Kidney Disease Education Program (NKDEP) does not endorse the use of the MDRD equation for patients that are not between the ages of 18 and 70, are , have extremes of body size, muscle mass, or nutritional status, or are non- or non-. According to the National Kidney Foundation, irrespective of diagnosis, the stage of the disease is based on the level of kidney function: Stage Description GFR(mL/min/1.73 m(2)) 1 Kidney damage with normal or decreased GFR 90 2 Kidney damage with mild decrease in GFR 60-89 3 Moderate decrease in GFR 30-59 4 Severe decrease in GFR 15-29 5 Kidney failure <15 (or dialysis) 42 Acute inflammation: >10.00 43 Because ethnic data is not always readily available, this report includes an eGFR for both -Americans and non- Americans. The National Kidney Disease Education Program (NKDEP) does not endorse the use of the MDRD equation for patients that are not between the ages of 18 and 70, are , have extremes of body size, muscle mass, or nutritional status, or are non- or non-. According to the National Kidney Foundation, irrespective of diagnosis, the stage of the disease is based on the level of kidney function: Stage Description GFR(mL/min/1.73 m(2)) 1 Kidney damage with normal or decreased GFR 90 2 Kidney damage with mild decrease in GFR 60-89 3 Moderate decrease in GFR 30-59 4 Severe decrease in GFR 15-29 5 Kidney failure <15 (or dialysis) 44 Reference Range and Interpretation: TnI (ng/mL) Interpretation Less Than 0.06 ng/mL Not supportive of diagnosis of NV 0.06 - 0.50 ng/mL Indeterminate: suggest serial studies if clinically indicated. Greater than 0.5 ng/mL Consistent with diagnosis of NV 45 Comment: n Comment: d 46 Comment: n Comment: d 47 This test detects intact HCG only and is indicated for the early detection of . 48 RUN DATE: 10/04/13 [facility] LAB LIVE PAGE 1 RUN TIME: [address] [place] [address] Specimen Inquiry Name: YANI CAMPBELL Humera : [address]: Roney Irizarry MD Acct: [id number] Unit: [id number] AGE: 28 Location: ED Re09/29/13 SEX: F Status: DEP ER SPEC: [id number] [place]: 09/29/13-[address]: Samia AMEZQUITA REQ: [id number] RECD: 09/29/13 STATUS: BERLIN HAYDEN DR: Roney Mota MD _ SOURCE: EFRAIN GRIGGS [facility]: ORDERED: Culture Stain Procedure Result Verified Site Wound/Misc Gram Stain Final 09/29/13- 1805 ML 3+ Epithelial Cells 4+ Polys 4+ Gram Positive Cocci 4+ Gram Negative Coccobacilli Wound/Misc Culture Final 10/04/13- 0838 ML Organism 1 ACTINOMYCES SPECIES Quantity 3+ Organism 2 NORMAL MARLINE Quantity 2+ END OF REPORT * ML=Testing performed at Main Lab DEPARTMENT OF PATHOLOGY, [address] [place] [address] Colton Woodard M.D. Director [facility] Permit #[id number] 49 This is a qualitative test. The TB antigen IU/mL value is required for documentation on certain government reporting forms (e.g., Form I-693), but this value should not be used to monitor disease progression or response to therapy. Diagnosing or excluding tuberculosis disease, and assessing the probability of LTBI, require a combination of epidemiological, historical, medical, and diagnostic findings that should be taken into account when interpreting QuantiFERON-TB results. Test Performed by: [place] [address] [employer] Rep[employer]r: Altaf Scales III, M.D. 50 Because ethnic data is not always readily available, this report includes an eGFR for both -Americans and non- Americans. The National Kidney Disease Education Program (NKDEP) does not endorse the use of the MDRD equation for patients that are not between the ages of 18 and 70, are , have extremes of body size, muscle mass, or nutritional status, or are non- or non-. According to the National Kidney Foundation, irrespective of diagnosis, the stage of the disease is based on the level of kidney function: Stage Description GFR(mL/min/1.73 m(2)) 1 Kidney damage with normal or decreased GFR 90 2 Kidney damage with mild decrease in GFR 60-89 3 Moderate decrease in GFR 30-59 4 Severe decrease in GFR 15-29 5 Kidney failure <15 (or dialysis) Procedures Date CPT Code Description Status 10/03/2013 Diabetic Foot Exam Completed 09/09/2013 Diabetic Foot Exam Completed Encounters Type Date Location Provider CPT E/M Dx Office Visit 04/10/2018 10:30a [facility] Internal Medicine Tyra Castillo M.D. 17315 I10 - [place] Z02.1 E04.0 R07.0 Office Visit 10/04/2017 11:40a [facility] Internal Medicine Tyra Castillo M.D. 15047 F41.9 - [place] I10 Z71.3 Office Visit 08/29/2017 1:00p [facility] Internal Medicine Tyra Castillo M.D. 86269 I16.0 - [place] I10 F41.9 R45.89 L04.0 Office Visit 08/23/2017 8:36a [facility] ,[place] [address] I16.0 Hospitalists F41.9 F32.89 Office Visit 08/22/2017 8:35a [facility] [place], [address] I16.0 Assoc,pc [place] Hospitalists Office Visit 06/27/2017 2:00p [facility] Internal Peter Guzman M.D. 16514 J06.9 Medicine - [place] Office Visit 04/16/2017 1:40p [facility] Internal Tyra Castillo M.D. 10932 F43.23 Medicine - [place] M54.9 Office Visit 07/04/2016 1:00p [facility] Internal Medicine Tyra Castillo M.D. 96815 R22.1 - [place] H53.8 R51 Office Visit 11/03/2015 1:40p [facility] Internal Medicine Tyra Castillo 53531 Z02.89 - [place] F17.210 R06.02 R20.2 Z13.220 Z13.1 Z11.1 Office Visit 09/28/2015 2:10p [facility] Internal Medicine Tyra Castillo 03633 J01.90 - [place] J98.01 Office Visit 07/26/2015 1:30p [facility] Internal Medicine Tyra Castillo M.D. 06317 V82.5 - [place] 300.00 Office Visit 06/22/2015 11:10a [facility] Internal Medicine Tyra Castillo M.D. 44319 626.0 - [place] V70.0 305.1 796.2 246.2 V25.40 Office Visit 02/08/2015 1:40p [facility] Internal Medicine Peter Guzman, 81457 782.1 - [place] Office Visit 02/02/2015 2:40p [facility] Internal Medicine Flakita Conteh M.D. 14605 691.8 - [place] 724.2 723.1 728.85 Office Visit 12/24/2013 2:30p [facility] Internal Medicine Tyra Castillo M.D. 46034 401.9 - [place] 780.79 Office Visit 12/10/2013 2:50p [facility] Internal Medicine Tyra Castillo M.D. 39930 401.9 - [place] 246.2 Office Visit 10/14/2013 2:40p [facility] Internal Medicine Flakita Conteh M.D. 58383 461.8 - [place] Office Visit 10/03/2013 12:30p [facility] Internal Medicine Niesha Stark N.P. 11220 682.8 - [place] Office Visit 10/01/2013 2:50p [facility] Internal Medicine Tyra Castillo M.D. 15492 682.8 - [place] V25.40 Office Visit 09/02/2013 2:00p [facility] Internal Medicine Jorje Nakul, [address]94[address] 305.1 - [place] V70.0 V72.62 727.1 723.1 V74.1 V04.81 Plan of Care 05/15/2018 - Tyra Castillo M.D.J06.9 Acute upper respiratory infection, unspecifiedNew Medication:Claritin 10 mgComments:symptoms are likely viral which can take sometimes 7-10 days to improve use claritin for the post nasal dripI10 Essential (primary) hypertensionComments:Stay away from decongestants as they raise the Blood yspwvefuE34.0 Tobacco useComments:Do not smoke , as it causes irritation to the throat and makes coughing worse
[2018-06-12 09:45] VITALS: BP 135/97
--- NOTE | 2018-06-12 11:57 | UC ---
Skin Complaint HPI - HPI Summary HPI Summary: Pt. is a 32-year-old female presenting to the urgent care for a painful bump to upper leg 4 days. Pt. states she shaved area over the weekend and shortly after noticed some irritation to her right upper leg several days ago and area has progressively became more painful and swollen. Pt. denies vaginal discharge or urinary symptoms. She denies fever, chills, N/V. She has no past medical history. Touching area makes symptoms worse. Nothing makes symptoms better. - History of Current Complaint Chief Complaint: UCSkin Time Seen by Provider: 06/12/18 10:00 Stated Complaint: INNER L THIGH COMPLAINT Hx Obtained From: Patient Hx Last Menstrual Period: 02/25/2018 Pain Intensity: 10 Pain Scale Used: 0-10 Numeric - Allergy/Home Medications Allergies/Adverse Reactions: Allergies Allergy/AdvReac Type Severity Reaction Status Date / Time Penicillins Allergy RASH, Verified 06/12/18 09:45 ITCHY THROAT all fruit except citrus Allergy Severe Hives/Diff. Uncoded 06/12/18 09:45 Breathing/I tching ENVIRONMENTAL Allergy ASTHMATIC Uncoded 06/12/18 09:45 SYMPTOMS Seafood Allergy Difficulty Uncoded 06/12/18 09:45 Breathing/Wheezing Review of Systems Constitutional: Negative Musculoskeletal: Other: - Painful bump to left upper leg All Other Systems Reviewed And Are Negative: Yes PMH/Surg Hx/FS Hx/Imm Hx Previously Healthy: Yes Other History Of: Negative For: HIV, Hepatitis B, Hepatitis C - Surgical History Surgical History: Yes Surgery Procedure, Year, and Place: ectopic 2003 - Family History Known Family History: Positive: Hypertension, Blood Disorder - sickle cell Negative: Renal Disease - Social History Occupation: Employed Full-time Lives: With Family Alcohol Use: Occasionally Substance Use Type: None Smoking Status (MU): Current Every Day Smoker Type: Cigarettes Length of Time of Smoking/Using Tobacco: 5-6 CIG/DAY Have You Smoked in the Last Year: Yes - Immunization History Most Recent Influenza Vaccination: Most Recent Tetanus Shot: unknown Most Recent Pneumonia Vaccination: never Physical Exam Triage Information Reviewed: Yes Appearance: Well-Appearing - Pt. sitting on exam table in NAD. Vital Signs: Initial Vital Signs Temp 97.4 F 06/12/18 09:41 Pulse 120 06/12/18 09:41 Resp 17 06/12/18 09:41 BP 135/97 07/18/18 09:41 Pulse Ox 100 06/12/18 09:41 Vital Signs Reviewed: Yes Eyes: Positive: Conjunctiva Clear Neck: Positive: Supple Skin: Positive: Other - Exam performed with nurse in room. Noted the left upper left just below the labia there is a roughly 3-4 cm linear area of tender induration. No fluctuance or drainage. No surrounding erythema. Course/Dx - Course Course Of Treatment: Pt. presenting to the ER for absess to left upper leg. She is afebrile and well appearing. There is no fluctuance today. Advised pt. that abscess may need to be opened and drainage in the next few days. Will start on Clindamycin. Motrin rx for pain. Advised to apply warm compresses. F.u with PCP for recheck in 2-3 days. To return to or go to ER for increased redness, swelling, fever, or vomiting. Pt. understands and agrees with plan. - Differential Diagnoses - Skin Complaint Differential Diagnoses: Abscess, Cellulitis, MRSA - Diagnoses Provider Diagnoses: Abscess Discharge - Sign-Out/Discharge Documenting (check all that apply): Patient Departure - Discharge Plan Condition: Good Disposition: HOME Prescriptions: Clindamycin Cap(NF) [Clindamycin Cap 300 mg Cap(NF)] 300 mg PO Q6H #40 cap Ibuprofen 800 mg PO Q8H #20 tablet Patient Education Materials: Abscess (ED) Referrals: Tyra Castillo MD [Primary Care Provider] - Additional Instructions: Call your PCP tomorrow for a close follow up appointment for 2-3 days Abscess may need to be drained in a few days Take medications as directed Apply warm compresses Return to ER for increased swelling, pain, redness, fever, or vomiting - Billing Disposition and Condition Condition: GOOD Disposition: Home
== END 2018-06-12 10:30 | disposition home or self-care (01) ==
LOC: UCEAST 09:09
DX: L02.416 Cutaneous abscess of left lower limb (principal); L03.116 Cellulitis of left lower limb; A49.02 Methicillin resistant Staphylococcus aureus infection, unspecified site; F17.210 Nicotine dependence, cigarettes, uncomplicated; Z88.0 Allergy status to penicillin; Z91.018 Allergy to other foods; Z91.013 Allergy to seafood
CPT/HCPCS: 99212; G0463

== ENCOUNTER 2018-08-18 12:39 | Emergency (ER) | payer OTHER ==
[2018-08-18] MEDS ORDERED: Metoclopramide IV* 5 MG/ML 2 ML VIAL IV ONE (15:22)
[2018-08-18] MEDS ORDERED: NS 0.9% 1000 ML* 1,000 ML IV ONE (15:22)
[2018-08-18] MEDS ORDERED: Ketorolac INJ* 30 MG/ML 1 ML VIAL IV ONE (15:22)
[2018-08-18] MEDS ORDERED: diPHENhydraMINE IV* 50 MG/ML 1 ml VIAL (BENADRYL) IV ONE (15:25)
--- NOTE | 2018-08-18 15:31 | ED ---
Complex/Multi-Sys Presentation - HPI Summary HPI Summary: A 33 y/o female presents to ED c/o headache (left temporal) and abdominal pain reaching 9/10 in severity. In the ED room, the patient has a pulse of 87 BPM, O2 saturation of 99% and blood pressure of 146/108. As per triage, "pt c/o headache, cramping in LLQ and chest tightness for 3 days". According to the patient, the headache started first on Sunday. She noted that the headache is throbbing and coupled with photophobia, denies any fever, neck pain, or blurred vision. She further noted that she has a history of headache/migraines as a child. The abdominal pain started 2 days ago which was characterized as contraction-like. She is unsure of as her LKMP was 07/18. She denies any diarrhea, vomiting or constipation, but has nausea. PMHx of bronchitis and ecoptic . FHx of HBP, asthma and cancer. SHx of occasional ETOH, patient is a smoker. - History Of Current Complaint Chief Complaint: EDAbdPain Time Seen by Provider: 08/18/18 15:15 Hx Obtained From: Patient - Allergies/Home Medications Allergies/Adverse Reactions: Allergies Allergy/AdvReac Type Severity Reaction Status Date / Time Penicillins Allergy RASH, Verified 08/18/18 12:49 ITCHY THROAT all fruit except citrus Allergy Severe Hives/Diff. Uncoded 08/18/18 12:49 Breathing/I tching ENVIRONMENTAL Allergy ASTHMATIC Uncoded 08/18/18 12:49 SYMPTOMS Seafood Allergy Difficulty Uncoded 08/18/18 12:49 Breathing/Wheezing PMH/Surg Hx/FS Hx/Imm Hx Endocrine/Hematology History: Reports: Hx Blood Disorders - sickle cell, Hx Blood Transfusions, Hx Thyroid Disease Denies: Hx Diabetes, Hx Anemia Cardiovascular History: Reports: Hx Hypertension Denies: Hx Congestive Heart Failure, Hx Deep Vein Thrombosis, Hx Myocardial Infarction, Hx Pacemaker/ICD Respiratory History: Reports: Hx Asthma Denies: Hx Chronic Obstructive Pulmonary Disease (COPD), Hx Lung Cancer, Hx Pneumonia, Hx Pulmonary Embolism GI History: Denies: Hx Gall Bladder Disease, Hx Gastrointestinal Bleed, Hx Jaundice, Hx Ulcer, Hx Urosepsis History: Reports: Hx Kidney Stones - PASSED years ago., Other Problems/ Disorders - kidney stone Denies: Hx Renal Disease Sensory History: Reports: Hx Contacts or Glasses - glasses no contacts Denies: Hx Hearing Aid Opthamlomology History: Reports: Hx Contacts or Glasses - glasses no contacts Neurological History: Reports: Other Neuro Impairments/Disorders - anxiety Denies: Hx Dementia, Hx Migraine, Hx Seizures, Hx Transient Ischemic Attacks (TIA) Psychiatric History: Reports: Hx Anxiety - NO MED Denies: Hx Depression, Hx Schizophrenia, Hx Bipolar Disorder - Surgical History Surgery Procedure, Year, and Place: ectopic 2003 Hx Anesthesia Reactions: No Infectious Disease History: No Infectious Disease History: Denies: Hx Clostridium Difficile, Hx Hepatitis, Hx Human Immunodeficiency Virus (HIV), Hx of Known/Suspected MRSA, Hx Shingles, Hx Tuberculosis, Hx Known/ Suspected VRE, Hx Known/Suspected VRSA, History Other Infectious Disease, Traveled Outside the [place] in Last 30 Days - Family History Known Family History: Positive: Hypertension, Blood Disorder - sickle cell Negative: Renal Disease - Social History Alcohol Use: Occasionally Hx Substance Use: No Substance Use Type: Reports: None Hx Tobacco Use: No Smoking Status (MU): Current Every Day Smoker Type: Cigarettes Length of Time of Smoking/Using Tobacco: 5-6 CIG/DAY Have You Smoked in the Last Year: Yes Review of Systems Negative: Fever Positive: Photophobia. Negative: Blurred Vision Positive: Other - POSITIVE: Chest tightness Positive: Abdominal Pain, Nausea, Other - NEGATIVE: CONSTIPATION. Negative: Vomiting, Diarrhea Positive: Other - NEGATIVE: Neck pain Positive: Headache All Other Systems Reviewed And Are Negative: Yes Physical Exam - Summary Physical Exam Summary: VITAL SIGNS: Reviewed. GENERAL: Patient is a well-developed and nourished female who is lying comfortable in the stretcher. Patient is not in any acute respiratory distress. HEAD AND FACE: Normocephalic and atraumatic. EYES: PERRLA, EOMI x 2, No injected conjunctiva. EARS: Hearing grossly intact. Ear canals and tympanic membranes are WNL. MOUTH: Oropharynx within normal limits. NECK: Supple, trachea is midline, no adenopathy, no JVD. CHEST: Symmetric, no tenderness at palpation LUNGS: Clear to auscultation bilaterally. No wheezing or crackles. CVS: RRR, S1 and S2 present, no murmurs or gallops appreciated. ABDOMEN: Soft, slight tenderness in lower abdomen. No signs of distention. Positive bowel sounds. No rebound no guarding, and no masses palpated. No abdominal bruit or pulsations. EXTREMITIES: FROM in all major joints, no edema, no cyanosis or clubbing. NEURO: Alert and oriented x 3. No acute neurological deficits. Speech is normal. SKIN: Dry and warm Triage Information Reviewed: Yes Vital Signs On Initial Exam: Initial Vitals Temp Pulse Resp BP Pulse Ox 98.7 F 94 16 141/97 100 08/18/18 12:49 08/18/18 12:49 08/18/18 12:49 08/18/18 12:49 08/18/18 12:49 Vital Signs Reviewed: Yes Diagnostics - Vital Signs Vital Signs Temp Pulse Resp BP Pulse Ox 08/18/18 14:16 99.1 F 95 16 135/92 100 08/18/18 12:49 98.7 F 94 16 141/97 100 - Laboratory Result Diagrams: 08/18/18 15:45 08/18/18 15:45 Lab Statement: Any lab studies that have been ordered have been reviewed, and results considered in the medical decision making process. - CT CT A/P CT Interpretation Completed By: Radiologist - NORMAL CT EXAMINATION. ED PHYSICIAN REVIEWED THIS RADIOLOGY REPORT. Complex Multi-Symp Course/Dx Assessment/Plan: This patient is a 33-year-old female who presents to the emergency department with a chief complaint of having a headache and lower abdominal pain. The patient reports that the headache started 3 days ago and is similar to usual migraine headaches. Abdominal pain started yesterday in the lower abdomen and is not radiating. The pain is 6-7 out of 10. Denies any vomiting diarrhea or constipation. She has mild nausea. She denies any blurred vision, denies any neck pain and she doesn't have any meningeal signs. Her last mental cycle it was on July 23. Blood work without any significant abnormality. Abdominopelvic CT impression: No acute pathology. In the ED course the patient was given IV fluids, Benadryl, Toradol and Reglan. After these medications the symptoms have resolved. At this point the patient is more dynamically stable alert and oriented 3. I discussed all the findings and test results with the patient. Patient was instructed to return to the emergency room immediately if any of the symptoms return or worsens. Plan of care was discussed with the patient and understands and agrees. All questions were answered at patient satisfaction. There were no further complaints or concerns. Lung exam before discharge: CTA B/L. Good air exchange. No wheezing or crackles heard. CVS: S1 and S2 present. No murmurs appreciated. Patient is alert and oriented x 3. Patient is hemodynamically stable. Patient will be discharged home with follow up PCP in the next 2-3 days - Diagnoses Provider Diagnoses: Headache, Abdominal pain Discharge - Sign-Out/Discharge Documenting (check all that apply): Patient Departure - DISCHARGE - Discharge Plan Condition: Stable Disposition: HOME Patient Education Materials: Abdominal Pain (ED), General Headache (ED) Forms: *Work Release Referrals: Tyra Castillo MD [Primary Care Provider] - 3 Days Additional Instructions: FOLLOW UP WITH PRIMARY CARE IN 2-3 DAYS. FOLLOW UP WITH YOUR PRIMARY CARE PROVIDER WITHIN ONE WEEK FOR HIGH BLOOD PRESSURE NOTED TODAY. RETURN TO ED FOR ANY NEW OR WORSENING SYMPTOMS. - Billing Disposition and Condition Condition: STABLE Disposition: Home - Attestation Statements Document Initiated by Maameibe: Yes Documenting Scribe: Emiliano Burton Provider For Whom Jazmyn is Documenting (Include Credential): Peter Christiansen MD Scribe Attestation: Emiliano Bo, scribed for Peter Christiansen MD on 08/19/18 at 1137. Scribe Documentation Reviewed: Yes Provider Attestation: The documentation as recorded by the scribeEmiliano accurately reflects the service I personally performed and the decisions made by me, Peter Christiansen MD
[2018-08-18 15:57] LABS: ABS Basophils 0.1 10^3/ul (0-0.2); ABS Eosinophils 1.3 10^3/ul (0-0.6); ABS Lymphocytes 1.4 10^3/ul (1.0-4.8); ABS Monocytes 0.5 10^3/ul (0-0.8); ABS Neutrophils 4.2 10^3/ul (1.5-7.7); ABS Nucleated RBC 0 10^3/ul; Eosinophil % 17.3 % (0-6); Hematocrit 41 % (35-47); Hemoglobin 13.9 g/dl (12.0-16.0); Lymphocyte % 18.3 % (25-47); Mean Corpuscular HGB Conc 34 g/dl (31-36); Mean Corpuscular Hemoglobin 33 pg (27-31); Mean Corpuscular Volume 97 fL (80-97); Nucleated Red Blood Cells % 0; Platelet Count 369 10^3/ul (150-450); Red Blood Count 4.26 10^6/ul (4.00-5.40); Red Cell Distribution Width 14 % (10.5-15); White Blood Count 7.4 10^3/ul (3.5-10.8)
[2018-08-18 16:15] LABS: EGFR Non-African American 100.2 (>60)
[2018-08-18] MEDS ORDERED: LORazepam INJ* 2 MG/ML 1 ML VIAL IV PUSH ONE (16:32)
[2018-08-18] MEDS ORDERED: Iohexol 300* (CONTRAST) 10 ML SDV IV ONE (17:10)
--- NOTE | 2018-08-18 18:35 | RAD ---
CLINICAL HISTORY: Abdominal pain COMPARISON: Similar CT examination dated December 08, 2010 TECHNIQUE: Contrast enhanced CT examination of the abdomen and pelvis from the lung bases through the initial tuberosities. The patient received 80 mL Omnipaque 300 intravenously prior to imaging. FINDINGS: VISUALIZED LUNG BASES: The visualized lung bases are grossly clear. There is no pleural effusion. ABDOMEN AND PELVIS: The liver, spleen, pancreas and adrenal glands are grossly normal in appearance. The gallbladder is normal. The kidneys are normal in appearance without focal mass, calcification or signs of hydronephrosis. Evaluation of the gastrointestinal tract is limited in the absence of oral contrast. The small and large bowel are not distended. The patient's normal appendix is identified in the right lower quadrant measuring 6 mm in diameter (coronal image 39). There is no gross retroperitoneal or mesenteric lymphadenopathy. The pelvic viscera is normal in appearance. The abdominal aorta and iliac arteries are normal in course and diameter. There are no sinister bone lesions. IMPRESSION: Normal CT examination.
[2018-08-18 19:30] VITALS: BP 129/90
== END 2018-08-18 19:29 | disposition home or self-care (01) ==
LOC: ED 12:39
DX: R51 Headache (principal); R10.9 Unspecified abdominal pain; Z88.0 Allergy status to penicillin; H53.149 Visual discomfort, unspecified; Z72.0 Tobacco use
CPT/HCPCS: 36415; 74177; 80053; 83605; 83690; 84702; 85025; 86140; 96374; 96375; 99283; J1200; J1885; J2060; J2765; Q9967

== ENCOUNTER 2018-09-03 12:27 | Emergency (ER) | payer OTHER ==
[2018-09-03 13:56] VITALS: BP 144/92
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
--- NOTE | 2018-09-03 14:35 | RAD ---
HISTORY: Left shoulder pain COMPARISONS: None VIEWS: 4 , Frontal internal rotation, external rotation, outlet, and axillary views of the left shoulder FINDINGS: BONE DENSITY: Normal. BONES: There is no displaced fracture. JOINTS: There is no arthropathy. ALIGNMENT: There is no dislocation. SOFT TISSUES: Unremarkable. OTHER FINDINGS: None. IMPRESSION: NO ACUTE OSSEOUS INJURY. IF SYMPTOMS PERSIST, RECOMMEND REPEAT IMAGING.
== END 2018-09-03 14:50 | disposition home or self-care (01) ==
LOC: UCEAST 12:27
DX: M25.512 Pain in left shoulder (principal); Z88.0 Allergy status to penicillin; Z91.013 Allergy to seafood; F17.210 Nicotine dependence, cigarettes, uncomplicated
CPT/HCPCS: 99213; G0463

== ENCOUNTER 2018-12-18 17:49 | Emergency (ER) | payer OTHER ==
[2018-12-18 18:58] VITALS: BP 134/98
[2018-12-18] MEDS ORDERED: Benzocaine/Butamben/Tetracain (CETACAINE - SINGLE USE) 5 gm TOPICAL ONE (19:06)
--- NOTE | 2018-12-18 19:08 | UC ---
Dental HPI - HPI Summary HPI Summary: 33 yo female presents with dental pain. She tells me that she has been taking clindamycin for the past 3 days for a dental infection, but today had increased pain and a large bump inside her mouth that is very painful. Not eating due to pain. Has been taking ibuprofen with no relief any longer. Denies fever. - History of Current Complaint Chief Complaint: UCDentalProblem Stated Complaint: SORE IN MOUTH Time Seen by Provider: 12/18/18 19:02 Hx Obtained From: Patient Hx Last Menstrual Period: 12/17/18 Onset/Duration: Gradual Onset Severity: Severe Pain Intensity: 10 Pain Scale Used: 0-10 Numeric - Allergies/Home Medications Allergies/Adverse Reactions: Allergies Allergy/AdvReac Type Severity Reaction Status Date / Time Penicillins Allergy RASH, Verified 12/18/18 18:59 ITCHY THROAT all fruit except citrus Allergy Severe Hives/Diff. Uncoded 12/18/18 18:59 Breathing/I tching ENVIRONMENTAL Allergy ASTHMATIC Uncoded 12/18/18 18:59 SYMPTOMS Seafood Allergy Difficulty Uncoded 12/18/18 18:59 Breathing/Wheezing Home Medications: Home Medications Clindamycin Cap(NF) [Clindamycin Cap 300 mg Cap(NF)] 150 mg PO QID 12/18/18 [ History Confirmed 12/18/18] PMH/Surg Hx/FS Hx/Imm Hx - Additional Past Medical History Additional PMH: None Other History Of: Negative For: HIV, Hepatitis B, Hepatitis C - Surgical History Surgical History: Yes Surgery Procedure, Year, and Place: ectopic 2003 - Family History Known Family History: Positive: Hypertension, Blood Disorder - sickle cell Negative: Renal Disease - Social History Occupation: Employed Full-time Lives: With Family Alcohol Use: Rare Substance Use Type: None Smoking Status (MU): Light Every Day Tobacco Smoker Type: Cigarettes Length of Time of Smoking/Using Tobacco: 1-2/day Have You Smoked in the Last Year: Yes - Immunization History Most Recent Influenza Vaccination: Most Recent Tetanus Shot: unknown Most Recent Pneumonia Vaccination: never Review of Systems All Other Systems Reviewed And Are Negative: Yes Constitutional: Positive: Negative Skin: Positive: Negative Eyes: Positive: Negative ENT: Positive: Dental Pain Respiratory: Positive: Negative Cardiovascular: Positive: Negative Neurological: Positive: Negative Psychological: Positive: Negative Physical Exam - Summary Physical Exam Summary: GENERAL: NAD. WDWN. No pain distress. SKIN: No rashes, sores, lesions, or open wounds. HEENT: Nose: NTTP maxillary sinus. NECK: Supple. Nontender. No lymphadenopathy. CHEST: No accessory muscle use. Breathing comfortably and in no distress. CV: Pulses intact. Cap refill <2seconds NEURO: Alert. PSYCH: Age appropriate behavior. Triage Information Reviewed: Yes Vital Signs: Initial Vital Signs Temp 98.6 F 12/18/18 18:54 Pulse 97 12/18/18 18:54 Resp 16 12/18/18 18:54 BP 134/98 12/18/18 18:54 Pulse Ox 100 12/18/18 18:54 Vital Signs Reviewed: Yes Dental: Positive: Gross Decay/Caries @ - throughout, Abscess @ - tooth #8-9 1.5cm in size. Negative: Dental Fracture @, Cellulitis @, Cervical Lymphadenopathy, Bleeding Procedures - Incision and Drainage Midline Site: Tooth #8-9 Anesthesia: Topical Instrument(s): Needle - 18G Packing: Other - none Dental Complaint Course/Dx - Course Course Of Treatment: The procedure was explained to the pt and all questions were answered. A time out was performed, witnessed, and signed. She was given 2 % viscous lidocaine and good anesthetization was achieved. An 18G needle was used to rachell the abscess and copious yellow purulent matter was able to be expressed. Pt tolerated well and felt significant relief. Advised to continue taking antibiotic and f/u with dentist as soon as possible - Differential Dx/Diagnosis Provider Diagnosis: Dental abscess Discharge - Sign-Out/Discharge Documenting (check all that apply): Patient Departure All imaging exams completed and their final reports reviewed: No Studies - Discharge Plan Condition: Stable Disposition: HOME Prescriptions: Chlorhexidine MW 0.12% 473ML* [Peridex Mouth Wash 0.12%] 15 ml MT BID #1 bottle Lidocaine 2% VISCOUS* [Xylocaine 2% Viscous*] 15 ml SWISH SPIT Q6H PRN #200 ml PRN Reason: Pain Patient Education Materials: Dental Abscess (ED) Referrals: Tyra Castillo MD [Primary Care Provider] - Additional Instructions: If you develop a fever, shortness of breath, chest pain, new or worsening symptoms - please call your PCP or go to the ED. Your blood pressure was high at todays visit. Please see your primary provider within 4 weeks for recheck and re-evaluation. Continue your antibiotic - Billing Disposition and Condition Condition: STABLE Disposition: Home - Attestation Statements Provider Attestation: Per institutional requirements, I have reviewed the chart, however, I was not consulted specifically or made aware of this patient by the midlevel provider. I did not personally evaluate, interact with , or disposition this patient.
[2018-12-18] MEDS ORDERED: Lidocaine 2% VISCOUS* 15 ML UDC PO ONE (19:22)
== END 2018-12-18 20:40 | disposition home or self-care (01) ==
LOC: UCEAST 17:49
DX: K04.7 Periapical abscess without sinus (principal); Z88.0 Allergy status to penicillin; F17.210 Nicotine dependence, cigarettes, uncomplicated
CPT/HCPCS: 10060; 41800; 99212; G0463